=== PATIENT | male | born 1935 | race Caucasian/White ===

== ENCOUNTER → 2017-05-19 | Outpatient (CLI) | payer MEDICARE, BC ==
--- NOTE | 2017-05-21 13:28 | P.ARTDOP ---
Arterial Doppler LOWER EXTREMITY ARTERIAL DOPPLER: DATE OF SERVICE: 05/19/2017 Reason for study: Suspected PVD. Doppler waveforms: Multiphasic bilaterally throughout. Pulse volume recording: Normal configuration. Pressure gradients: None. Ankle-brachial indices: Greater than 1 bilaterally. Toe pressures: [] on the right, [] on the left Impression: Normal study.
== END | disposition home or self-care (01) ==
LOC: RADUSWWP 10:21
PROVIDERS: ATTEND Family Medicine
DX: I73.9 Peripheral vascular disease, unspecified (principal)
CPT/HCPCS: 93923

== ENCOUNTER 2017-09-07 11:54 | Inpatient (IN) | payer MEDICARE, BC ==
[2017-09-07] MEDS ORDERED: IPRATROPIUM-ALBUTEROL 3 ML NEB INHALATION STA (12:28)
[2017-09-07 12:48] LABS: Basophils % (A) 1 %; CH 27.4; CHCM 31.3; Eosinophils # (A) 0.2 k/uL (0-0.7); Eosinophils % (A) 4 %; HCT 45.4 % (39.0-53.0); HGB 14.3 gm/dL (13.0-17.5); Hypochromasia Slight; Luc # (Auto) 0.17; Luc % (Auto) 3; Lymphocytes # (A) 1.4 k/uL (1.0-4.8); Lymphocytes % (A) 22 %; MCH 27.8 pg (25.0-35.0); MCHC 31.5 g/dL (31.0-37.0); MCV 88.1 fL (80.0-100.0); Mean Platelet Volume 9.5; Monocytes # (A) 0.6 k/uL (0-1.0); Monocytes % (A) 9 %; Neutrophils % (A) 62 %; RBC 5.15 m/uL (4.30-5.90); RDW 14.4 % (11.5-15.5); WBC 6.4 k/uL (3.8-10.6); WBC (Perox) 6.07
[2017-09-07 12:58] LABS: INR 1.1 (<1.2); Partial Thromboplastin Time 22.8 sec (22.0-30.0); Prothrombin Time 10.9 sec (9.0-12.0)
--- NOTE | 2017-09-07 12:58 | XR ---
EXAMINATION TYPE: XR chest 2V DATE OF EXAM: 09/07/2017 HISTORY: Chest Pain. REFERENCE: Previous study dated 09/26/2014. FINDINGS: Lung volumes are prominent. There is scarring in the left apex. Lungs otherwise clear. Pleu ral spaces are clear. Heart size is upper limits of normal. There is a moderate dextroscoliosis. Ther e is unfolding and ectasia of the thoracic aorta. IMPRESSION: 1. COPD. 2. MILD CARDIOMEGALY. 3. LEFT UPPER LOBE SCARRING.
[2017-09-07 13:00] LABS: Calcium 9.9 mg/dL (8.4-10.2); Magnesium 2.1 mg/dL (1.6-2.3); Potassium 4.7 mmol/L (3.5-5.1); Total Bilirubin 0.9 mg/dL (0.2-1.3); Total Protein 8.4 g/dL (6.3-8.2)
[2017-09-07 13:30] LABS: Troponin I 0.541 ng/mL (0.000-0.034)
[2017-09-07] MEDS ORDERED: NITROGLYCERIN OINT 1 INCH/GM PACKET TOPICAL STA (14:03)
--- NOTE | 2017-09-07 14:11 | ED ---
Chest Pain HPI - General Chief Complaint: Chest Pain Stated Complaint: chest pain Time Seen by Provider: 09/07/17 12:27 Source: patient, family, RN notes reviewed Mode of arrival: wheelchair Limitations: no limitations - History of Present Illness Initial Comments: This is a 82-year-old male with history of heart disease and stents who her last couple days had intermittent episodes of chest pain. Achy pressure-like in nature currently is pain-free and was as bad as 5/10 in severity. No fevers chills nausea vomiting sweats or other symptoms. MD Complaint: chest pain - Related Data Home Medications Medication Instructions Recorded Confirmed Losartan Potassium 100 mg PO DAILY 06/07/15 09/07/17 Metoprolol Succinate [Toprol XL] 50 mg PO HS 06/07/15 09/07/17 amLODIPine BESYLATE [Norvasc] 5 mg PO HS 06/19/15 09/07/17 Aspirin [Adult Low Dose Aspirin EC] 81 mg PO DAILY 09/07/17 09/07/17 Previous Rx's Medication Instructions Recorded Atorvastatin [Lipitor] 80 mg PO HS #60 tab 06/22/15 Clopidogrel [Plavix] 75 mg PO DAILY #90 tab 06/22/15 Allergies Allergy/AdvReac Type Severity Reaction Status Date / Time Penicillins Allergy Rash/Hives Verified 09/07/17 12:40 Review of Systems ROS Statement: Those systems with pertinent positive or pertinent negative responses have been documented in the HPI. ROS Other: All systems not noted in ROS Statement are negative. EKG Findings - EKG Results: EKG: interpreted by ERMD, sinus rhythm (Sinus rhythm of 71st 3 AV block IA to 10 , QRS 124 QT since QTC of 432/466 evidence a left exodeviation old inferior and anterior changes.) Past Medical History Past Medical History: Coronary Artery Disease (CAD), CVA/TIA, Hyperlipidemia, Hypertension Additional Past Medical History / Comment(s): irreg. heart rate History of Any Multi-Drug Resistant Organisms: None Reported Past Surgical History: Heart Catheterization, Hernia Repair Additional Past Surgical History / Comment(s): STATES HERNIA REPAIR X4, HIATAL HERNIA REPAIR, BENIGN GROWTH REMOVED FROM THROAT Past Anesthesia/Blood Transfusion Reactions: No Reported Reaction Past Psychological History: No Psychological Hx Reported Smoking Status: Former smoker Past Alcohol Use History: Rare Past Drug Use History: None Reported - Past Family History Mother Family Medical History: No Reported History General Exam - General Exam Comments Initial Comments: This is a well-developed well-nourished awake alert oriented times 3 male Limitations: no limitations General appearance: alert, in no apparent distress Head exam: Present: atraumatic, normocephalic, normal inspection Eye exam: Present: normal appearance, PERRL, EOMI. Absent: scleral icterus, conjunctival injection, periorbital swelling ENT exam: Present: normal exam, mucous membranes moist Neck exam: Present: normal inspection. Absent: tenderness, meningismus, lymphadenopathy Respiratory exam: Present: wheezes, decreased breath sounds. Absent: respiratory distress, rales, rhonchi, stridor Cardiovascular Exam: Present: regular rate, normal rhythm, normal heart sounds. Absent: systolic murmur, diastolic murmur, rubs, gallop, clicks GI/Abdominal exam: Present: soft, normal bowel sounds. Absent: distended, tenderness, guarding, rebound, rigid Extremities exam: Present: normal inspection, full ROM, normal capillary refill. Absent: tenderness, pedal edema, joint swelling, calf tenderness Back exam: Present: normal inspection Neurological exam: Present: alert, oriented X3, CN II-XII intact Psychiatric exam: Present: normal affect, normal mood Skin exam: Present: warm, dry, intact, normal color. Absent: rash Course Vital Signs 09/07/17 09/07/17 09/07/17 11:59 12:58 13:02 Temperature 98.9 F Pulse Rate 68 70 67 Respiratory 18 18 Rate Blood Pressure 155/80 147/83 O2 Sat by Pulse 98 98 Oximetry 09/07/17 09/07/17 09/07/17 13:08 13:33 14:14 Temperature Pulse Rate 68 70 72 Respiratory 18 20 Rate Blood Pressure 121/76 137/70 O2 Sat by Pulse 96 98 Oximetry 09/07/17 15:23 Temperature Pulse Rate 82 Respiratory 20 Rate Blood Pressure 111/64 O2 Sat by Pulse 97 Oximetry - Reevaluation(s) Reevaluation #1: 09/07/17 15:15 Reevaluation patient reveals no further chest pain. He then later however complains some slight burning radiating to his epigastric region upward. Repeat EKG showed a sinus rhythm of 75. Interval 198 QRS duration 136 daily since QTC of 426/475 left exodeviation nonspecific interventricular conduction block essentially no change from the EKG done earlier. Chest Pain MDM - MDM I did discuss findings with patient family patient will be admitted he does have evidence of a similar angina and non-ST elevation OK. No EKG changes were noted x-rays are unremarkable for acute processes. Critical Care Time Critical Care Time: Yes Critical Care Time: 31 minutes of critical care time which includes initial presentation with history physical labs x-rays reevaluation patient response to therapy discussed with patient family members discussion with the admitting physician orders and documentation of the above. Disposition Clinical Impression: Non-ST elevation myocardial infarction (NSTEMI), Chest pain, Renal insufficiency Disposition: ADMITTED IP TO THIS HOSP Condition: Stable Referrals: Shade Pitts MD [Primary Care Provider] - 1-2 days
[2017-09-07] MEDS ORDERED: MORPHINE SULFATE 10 MG/ML SYRINGE IVP ONE (14:26)
[2017-09-07] MEDS ORDERED: HEPARIN SODIUM,PORCINE 5,000 UNIT/ML 1 ML VIAL IV ONE (15:24)
[2017-09-07] MEDS ORDERED: SODIUM CHLORIDE 0.9% 1,000 ML IV SCH (15:30)
[2017-09-07] MEDS: HEPARIN SODIUM,PORCINE/D5W PMX 25,000 UNIT in DEXTROSE/WATER 1 500ML.BAG IV SCH (15:41)
--- NOTE | 2017-09-07 15:49 | ED ---
Medical Decision Making - Lab Data Result diagrams: 09/07/17 12:18 09/07/17 12:18 Lab Results 09/07/17 09/07/17 09/07/17 Range/Units 12:18 12:18 12:18 WBC 6.4 (3.8-10.6) k/uL RBC 5.15 (4.30-5.90) m/uL Hgb 14.3 (13.0-17.5) gm/dL Hct 45.4 (39.0-53.0) % MCV 88.1 (80.0-100.0) fL MCH 27.8 (25.0-35.0) pg MCHC 31.5 (31.0-37.0) g/dL RDW 14.4 (11.5-15.5) % Plt Count 165 (150-450) k/uL Neutrophils % 62 % Lymphocytes % 22 % Monocytes % 9 % Eosinophils % 4 % Basophils % 1 % Neutrophils # 4.0 (1.3-7.7) k/uL Lymphocytes # 1.4 (1.0-4.8) k/uL Monocytes # 0.6 (0-1.0) k/uL Eosinophils # 0.2 (0-0.7) k/uL Basophils # 0.0 (0-0.2) k/uL Hypochromasia Slight PT (9.0-12.0) sec INR (<1.2) APTT (22.0-30.0) sec D-Dimer (<0.60) mg/L FEU Sodium 143 (137-145) mmol/L Potassium 4.7 (3.5-5.1) mmol/L Chloride 106 (98-107) mmol/L Carbon Dioxide 24 (22-30) mmol/L Anion Gap 13 mmol/L BUN 34 H (9-20) mg/dL Creatinine 1.65 H (0.66-1.25) mg/dL Est GFR (MDRD) Af Amer 49 (>60 ml/min/1.73 sqM) Est GFR (MDRD) Non-Af 40 (>60 ml/min/1.73 sqM) Glucose 106 H (74-99) mg/dL Calcium 9.9 (8.4-10.2) mg/dL Magnesium 2.1 (1.6-2.3) mg/dL Total Bilirubin 0.9 (0.2-1.3) mg/dL AST 30 (17-59) U/L ALT 35 (21-72) U/L Alkaline Phosphatase 68 (38-126) U/L Total Creatine Kinase 117 (55-170) U/L CK-MB (CK-2) 5.0 H* (0.0-2.4) ng/mL CK-MB (CK-2) Rel Index 4.3 Troponin I 0.541 H* (0.000-0.034) ng/mL NT-Pro-B Natriuret Pep pg/mL Total Protein 8.4 H (6.3-8.2) g/dL Albumin 4.4 (3.5-5.0) g/dL Amylase 169 H (30-110) U/L Lipase 457 H (23-300) U/L 09/07/17 09/07/17 Range/Units 12:18 12:18 WBC (3.8-10.6) k/uL RBC (4.30-5.90) m/uL Hgb (13.0-17.5) gm/dL Hct (39.0-53.0) % MCV (80.0-100.0) fL MCH (25.0-35.0) pg MCHC (31.0-37.0) g/dL RDW (11.5-15.5) % Plt Count (150-450) k/uL Neutrophils % % Lymphocytes % % Monocytes % % Eosinophils % % Basophils % % Neutrophils # (1.3-7.7) k/uL Lymphocytes # (1.0-4.8) k/uL Monocytes # (0-1.0) k/uL Eosinophils # (0-0.7) k/uL Basophils # (0-0.2) k/uL Hypochromasia PT 10.9 (9.0-12.0) sec INR 1.1 (<1.2) APTT 22.8 (22.0-30.0) sec D-Dimer 1.76 H (<0.60) mg/L FEU Sodium (137-145) mmol/L Potassium (3.5-5.1) mmol/L Chloride (98-107) mmol/L Carbon Dioxide (22-30) mmol/L Anion Gap mmol/L BUN (9-20) mg/dL Creatinine (0.66-1.25) mg/dL Est GFR (MDRD) Af Amer (>60 ml/min/1.73 sqM) Est GFR (MDRD) Non-Af (>60 ml/min/1.73 sqM) Glucose (74-99) mg/dL Calcium (8.4-10.2) mg/dL Magnesium (1.6-2.3) mg/dL Total Bilirubin (0.2-1.3) mg/dL AST (17-59) U/L ALT (21-72) U/L Alkaline Phosphatase (38-126) U/L Total Creatine Kinase (55-170) U/L CK-MB (CK-2) (0.0-2.4) ng/mL CK-MB (CK-2) Rel Index Troponin I (0.000-0.034) ng/mL NT-Pro-B Natriuret Pep 2280 pg/mL Total Protein (6.3-8.2) g/dL Albumin (3.5-5.0) g/dL Amylase (30-110) U/L Lipase (23-300) U/L Disposition Clinical Impression: Non-ST elevation myocardial infarction (NSTEMI), Chest pain, Renal insufficiency, Pancreatitis Disposition: ADMITTED IP TO THIS [facility] Condition: Stable
[2017-09-07] MEDS: NITROGLYCERIN OINT 1 INCH/GM PACKET TOPICAL SCH ×2 (17:41→23:11)
[2017-09-07 19:14] LABS: Creatine Kinase MB 4.8 ng/mL (0.0-2.4)
[2017-09-07 19:15] LABS: Troponin I 0.666 ng/mL (0.000-0.034)
[2017-09-07] MEDS ORDERED: ATORVASTATIN 80 MG TAB PO SCH (21:00)
[2017-09-07] MEDS: amLODIPine 5 MG TAB PO SCH (21:33)
[2017-09-07] MEDS: METOPROLOL SUCCINATE (ER) 50 MG TAB.ER.24H PO SCH (21:54)
[2017-09-08 01:45] LABS: Troponin I 2.13 ng/mL (0.000-0.034)
--- NOTE | 2017-09-08 05:02 | HP ---
HISTORY AND PHYSICAL DATE OF ADMISSION: 09/07/17 PRESENTING COMPLAINT: Chest pain. HISTORY OF PRESENTING COMPLAINT: This is a very pleasant 82-year-old patient of Dr. Pitts whose chronic stable medical conditions include hypertension, hyperlipidemia. The patient has known coronary artery disease with stent in 2014. For 10 days, patient having episodes of pain going across the chest, could even be present at rest. The patient again had an episode last night with pressure across the chest and had to sit up, could barely sleep the whole night. Developed swelling in his extremities. The pain went down to the arms. These episodes often times lasted for about half an hour. The patient does not take nitroglycerin. No sweating. No dizziness. No palpitation. The patient admitted to the ER, started on IV heparin. is at the bedside. REVIEW OF SYSTEMS: CONSTITUTIONAL: Tired. HEENT: None. RESPIRATORY: None. CARDIOVASCULAR: As above. GASTROINTESTINAL: None GENITOURINARY: None. MUSCULOSKELETAL: None. DERMATOLOGIC, HEMATOLOGIC, LYMPHATIC: none. PSYCHIATRY: None. NEUROLOGICAL: None. PAST HISTORY: Coronary artery with stent in 2014, stroke that resolved, hyperlipidemia, hypertension. Also irregular heart rate. Stroke x4, resolved. PAST SURGICAL HISTORY: Cardiac catheterization, hernia repair x4, benign removed from the throat. SOCIAL HISTORY: The patient did smoke in the past. Alcohol rarely. Used to work in refrigeration and air-conditioning. . FAMILY HISTORY: Reviewed noncontributory to presentation. HOME MEDICATIONS: Norvasc 5 mg q.h.s., Toprol-XL 50 mg q.h.s., losartan 100 mg p.o. daily. Plavix 25 mg p.o. daily. Lipitor 80 mg q.h.s., aspirin 81 mg p.o. daily. ALLERGIES: PENICILLIN. PHYSICAL EXAMINATION: Temperature 98.9, pulse 68, respiration 18, blood pressure 155/80, pulse ox 98% on room air. GENERAL APPEARANCE: Average build lying in bed, tired appearing. EYES: Pupils are normal. HEENT: Oral cavity normal. NECK: JVD not raised. Mass not palpable. RESPIRATORY: Effort. Lungs fair entry. CARDIOVASCULAR: First and second sounds normal. No edema. ABDOMEN: Soft, nontender. Liver and spleen not palpable. LYMPHATIC: No lymph nodes palpable in neck or axillae. PSYCHIATRY: Alert and oriented x3. Mood and affect normal. NEUROLOGICAL: Pupils equal. Cranial nerves grossly intact. Power and sensation grossly intact. INVESTIGATIONS: White count 6.4, hemoglobin 14.3, potassium 4.7, BUN 34, creatinine 1.65. Troponin 0.541, 0.666. Amylase 169. Lipase 457. ProBNP 2280. EKG shows sinus rhythm, some element of intraventricular block, some nonspecific ST-segment changes. ASSESSMENT: 1. Acute non ST elevation myocardial infarction in a patient who has known underlying coronary artery disease with cardiac symptoms for the last 10 days. 2. Hyperlipidemia. 3. Essential hypertension. 4. IV heparin monitoring. 5. Chronic kidney disease stage 3, likely hypertensive nephrosclerosis. PLAN: Patient is on aspirin, Lipitor, Plavix, Norvasc, Toprol-XL. Cardiology is consulted. The patient's symptoms have been present for the last 10 days. Because the patient has got renal dysfunction the decision between cardiac catheterization versus medical management will have to be determined. The patient has been having active chest pain. Care was discussed the patient and at the bedside. The patient has a mild elevation of amylase and lipase. It is possible the patient could have an attack of pancreatitis, but given the renal function, these pancreatic enzymes do take a while to clear and this could be on its way down. We will check repeat enzymes in the morning. MMODL / IJN: [id number] /
[2017-09-08] MEDS: NITROGLYCERIN OINT 1 INCH/GM PACKET TOPICAL SCH ×4 (06:31→23:11)
[2017-09-08] MEDS: NITROGLYCERIN SL TABS 0.4 MG TAB SUBLINGUAL PRN ×2 (06:37→10:20)
[2017-09-08 07:15] LABS: Calcium 9.1 mg/dL (8.4-10.2); Potassium 4.9 mmol/L (3.5-5.1)
[2017-09-08] MEDS ORDERED: ALPRAZolam 0.5 MG TAB PO PRN (08:01)
[2017-09-08] MEDS ORDERED: SODIUM CHLORIDE 0.9% 1,000 ML in EMPTY BAG 1 BAG IV ONE (08:01)
[2017-09-08] MEDS ORDERED: ALPRAZolam 0.25 MG TAB PO PRN (08:01)
[2017-09-08] MEDS ORDERED: NITROGLYCERIN SL TABS 0.4 MG TAB SUBLINGUAL PRN ×2 (08:01→11:47)
[2017-09-08] MEDS ORDERED: ATORVASTATIN 80 MG TAB PO STA (08:05)
[2017-09-08] MEDS ORDERED: ASPIRIN 325 MG TAB PO STA (08:05)
--- NOTE | 2017-09-08 08:05 | P.CRDCN ---
History of Present Illness Consult date: 09/08/17 Requesting physician: Akhil Decker Consult reason: chest pain Chief complaint: Chest pain History of present illness: This is a pleasant 82-year-old gentleman who follows regularly with Dr. Paras Nguyễn in the office. He has a known history of hypertension, hyperlipidemia, coronary artery disease with prior stenting of the mid and distal RCA in 2015, moderate aortic stenosis, GERD, and Zenker's diverticula. He presents to the hospital with symptoms of midsternal chest tightness with radiation down both of his arms. Patient states that he's been experiencing this discomfort off-and-on for the past 2 weeks. Initially the symptoms would occur when he was sleeping, he states now that he also notices symptoms just with getting up to go to the bathroom. He denies any associated diaphoresis or nausea, no shortness of breath. Initial EKG on presentation here shows normal sinus rhythm with anterior ST-T wave changes. Subsequent EKG shows normal sinus rhythm with anterior ST-T wave changes and lateral ST depression. Chest x -ray shows COPD and mild cardiomegaly. White blood cell count normal, hemoglobin 14.3, platelet count 165. D-dimer 1.76, potassium 4.9, BUN 32, creatinine 1.6. Troponins came back to be abnormal, 0.5, 0.6, 2.1. BNP level 2280. Amylase 169 on admission, 150 this morning, lipase 457 on admission, 497 this morning. Blood pressure this morning 104/60 with a heart rate in the 60s, temperature 97.1. Patient did state that this morning when he was getting up to use the urinal he had an episode of severe chest tightness with radiation down both of his arms. He was given sublingual nitroglycerin as well as Nitropaste and currently is pain-free. Past Medical History Past Medical History: Coronary Artery Disease (CAD), Cancer, CVA/TIA, Hyperlipidemia, Hypertension Additional Past Medical History / Comment(s): irreg. 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 08-27-17 Past Anesthesia/Blood Transfusion Reactions: No Reported Reaction Past Psychological History: No Psychological Hx Reported Smoking Status: Former smoker Past Alcohol Use History: Rare Past Drug Use History: None Reported - Past Family History Mother Family Medical History: No Reported History Medications and Allergies Home Medications Medication Instructions Recorded Confirmed Type Losartan Potassium 100 mg PO DAILY 06/07/15 09/07/17 History Metoprolol Succinate [Toprol XL] 50 mg PO HS 06/07/15 09/07/17 History amLODIPine BESYLATE [Norvasc] 5 mg PO HS 06/19/15 09/07/17 History Atorvastatin [Lipitor] 80 mg PO HS #60 tab 06/22/15 09/07/17 Rx Clopidogrel [Plavix] 75 mg PO DAILY #90 tab 06/22/15 09/07/17 Rx Aspirin [Adult Low Dose Aspirin EC] 81 mg PO DAILY 09/07/17 09/07/17 History Allergies Allergy/AdvReac Type Severity Reaction Status Date / Time Penicillins Allergy Rash/Hives Verified 09/07/17 12:40 Physical Exam Vitals: Vital Signs Temp Pulse Pulse Resp BP BP Pulse Ox 09/08/17 04:00 97.1 F L 68 16 103/61 95 09/08/17 00:00 78 17 100/60 97 09/07/17 20:00 97.6 F 84 16 104/61 97 09/07/17 15:50 97.1 F L 85 16 102/58 94 L 09/07/17 15:46 97.9 F 82 18 111/66 98 09/07/17 15:23 82 20 111/64 97 09/07/17 14:14 72 20 137/70 98 09/07/17 13:33 70 18 121/76 96 09/07/17 13:08 68 09/07/17 13:02 67 09/07/17 12:58 70 18 147/83 98 09/07/17 11:59 98.9 F 68 18 155/80 98 Intake and Output 09/07/17 09/08/17 09/08/17 22:59 06:59 14:59 Intake Total 315.543 319.821 Output Total 1000 Balance 315.543 -680.179 Intake: Intake, IV Titration 115.543 319.821 Amount Heparin Sodium,Porcine/ 115.543 179.821 D5w Pmx 25,000 unit In Dextrose/Water 1 500ml. bag @ 12 UNITS/KG/HR 17. 96 mls/hr IV .Q24H YULISA Rx #:[id number] Sodium Chloride 0.9% 1, 140 000 ml @ 20 mls/hr IV . Q24H YULISA Rx#:[id number] Oral 200 Output: Urine 1000 Other: # Voids 1 2 Weight 76 kg 75.6 kg PHYSICAL EXAMINATION: HEENT: Head is atraumatic, normocephalic. Pupils equal, round. Neck is supple. There is no elevated jugular venous pressure. HEART EXAMINATION: Heart S1 S2 1 systolic ejection murmur is heard. CHEST EXAMINATION: Lungs are clear to auscultation and precussion. No chest wall tenderness is noted on palpation or with deep breathing. ABDOMEN: Soft, nontender. Bowel sounds are heard. No organomegaly noted. EXTREMITIES: 2+ peripheral pulses with no evidence of peripheral edema and no calf tenderness noted. NEUROLOGIC patient is awake, alert and oriented -3. . Results 09/07/17 12:18 09/08/17 06:13 Cardiac Enzymes 09/07/17 09/07/17 09/07/17 Range/Units 12:18 12:18 18:30 AST 30 (17-59) U/L CK-MB (CK-2) 5.0 H* 4.8 H* (0.0-2.4) ng/mL Troponin I 0.541 H* 0.666 H* (0.000-0.034) ng/mL 09/08/17 Range/Units 00:25 AST (17-59) U/L CK-MB (CK-2) 12.0 H* (0.0-2.4) ng/mL Troponin I 2.130 H* (0.000-0.034) ng/mL Coagulation 09/07/17 09/07/17 09/08/17 Range/Units 12:18 21:33 06:13 PT 10.9 (9.0-12.0) sec APTT 22.8 45.1 H 53.2 H (22.0-30.0) sec Lipids 09/08/17 Range/Units 06:13 Triglycerides 53 (<150) mg/dL Cholesterol 118 (<200) mg/dL HDL Cholesterol 59 (40-60) mg/dL CBC 09/07/17 Range/Units 12:18 WBC 6.4 (3.8-10.6) k/uL RBC 5.15 (4.30-5.90) m/uL Hgb 14.3 (13.0-17.5) gm/dL Hct 45.4 (39.0-53.0) % Plt Count 165 (150-450) k/uL Comprehensive Metabolic Panel 09/07/17 09/08/17 Range/Units 12:18 06:13 Sodium 143 141 (137-145) mmol/L Potassium 4.7 4.9 (3.5-5.1) mmol/L Chloride 106 108 H (98-107) mmol/L Carbon Dioxide 24 26 (22-30) mmol/L BUN 34 H 32 H (9-20) mg/dL Creatinine 1.65 H 1.60 H (0.66-1.25) mg/dL Glucose 106 H 97 (74-99) mg/dL Calcium 9.9 9.1 (8.4-10.2) mg/dL AST 30 (17-59) U/L ALT 35 (21-72) U/L Alkaline Phosphatase 68 (38-126) U/L Total Protein 8.4 H (6.3-8.2) g/dL Albumin 4.4 (3.5-5.0) g/dL Current Medications Generic Name Dose Route Start Last Admin Trade Name Freq PRN Reason Stop Dose Admin Amlodipine Besylate 5 mg 09/07/17 21:00 09/07/17 21:33 Norvasc PO 5 mg HS YULISA Administration Aspirin 81 mg 09/08/17 09:00 Aspirin PO DAILY [facility] Atorvastatin Calcium 80 mg 09/07/17 21:00 09/07/17 21:33 Lipitor PO 80 mg HS YULISA Administration Clopidogrel Bisulfate 75 mg 09/08/17 09:00 Plavix PO DAILY [facility] Heparin Sodium/Dextrose 25,000 500 mls @ 17.96 mls/hr 09/07/17 15:30 06:42 unit/ IV Solution IV 14 units/kg/hr .Q24H YULISA 20.95 mls/hr Protocol Titration 12 UNITS/KG/HR Sodium Chloride 1,000 mls @ 20 mls/hr 09/07/17 15:30 09/07/17 15:38 Saline 0.9% IV 20 mls/hr .Q24H YULISA Administration Losartan Potassium 100 mg 09/08/17 09:00 Cozaar PO DAILY [facility] Metoprolol Succinate 50 mg 09/07/17 21:00 09/07/17 21:54 Toprol Xl PO 50 mg HS YULISA Administration Nitroglycerin 1 inch 09/07/17 18:00 09/08/17 06:31 Nitro-Bid Oint TOPICAL 1 inch Q6HR YULISA Administration Nitroglycerin 0.4 mg 09/07/17 15:24 09/08/17 06:37 Nitrostat SUBLINGUAL 0.4 mg Q5M PRN Administration Chest Pain Intake and Output 09/07/17 09/08/17 09/08/17 22:59 06:59 14:59 Intake Total 315.543 319.821 Output Total 1000 Balance 315.543 -680.179 Intake: Intake, IV Titration 115.543 319.821 Amount Heparin Sodium,Porcine/ 115.543 179.821 D5w Pmx 25,000 unit In Dextrose/Water 1 500ml. bag @ 12 UNITS/KG/HR 17. 96 mls/hr IV .Q24H [facility] Rx #:[id number] Sodium Chloride 0.9% 1, 140 000 ml @ 20 mls/hr IV . Q24H YULISA Rx#:[id number] Oral 200 Output: Urine 1000 Other: # Voids 1 2 Weight 76 kg 75.6 kg 09/07/17 12:18 09/08/17 06:13 EKG Interpretations (text) EKG shows a normal sinus rhythm with anterior ST-T wave changes in lateral ST depression. Assessment and Plan Plan: Assessment and plan #1 chest tightness with radiation to bilateral arms, EKG shows normal sinus rhythm with anterior ST-T wave changes in lateral ST depression. Abnormal troponins, 0.5, 0.6, 2.1. Suggesting non-Q-wave myocardial infarction. D- dimer 1.76 #2 history of coronary artery disease with prior RCA stenting in 2015 #3 hypertension #4 moderate aortic stenosis #5 hyperlipidemia #6 GERD #7 Zenker's diverticula #8 acute on chronic renal insufficiency. Creatinine 1.6 #9 elevated amylase and lipase, amylase 150, lipase 497. Plan We will obtain a stat echocardiogram with Doppler study. Increase IV fluids to 100 mL per hour. Continue aspirin, Lipitor, Plavix, IV heparin, Cozaar, metoprolol tartrate, and Nitropaste. Patient has been advised he may need to undergo cardiac catheterization for more definitive diagnosis, the risks and the benefits have been explained to the patient in detail. Further recommendations will be based on these findings and the patient's clinical course. DNP note has been reviewed, I agree with a documented findings and plan of care. Patient was seen and examined.
[2017-09-08] MEDS: CLOPIDOGREL 75 MG TAB PO SCH (08:09)
[2017-09-08] MEDS ORDERED: ASPIRIN 325 MG TAB PO SCH (09:00)
[2017-09-08] MEDS ORDERED: ASPIRIN 81 MG PO SCH (09:00)
[2017-09-08 10:23] LABS: Glucose,Whole Blood 107 mg/dL (75-99)
[2017-09-08] MEDS ORDERED: MIDAZOLAM 2 MG/2 ML VIAL ONE (10:37)
[2017-09-08] MEDS ORDERED: LIDOCAINE 2% INJ 20 MG/ML (20 ML MDV) ONE (10:38)
[2017-09-08] MEDS ORDERED: diphenhydrAMINE 50 MG/ML 1 ML VIAL ONE (10:38)
[2017-09-08] MEDS ORDERED: diphenhydrAMINE 50 MG/ML 1 ML VIAL IVP ONE (10:47)
[2017-09-08] MEDS ORDERED: MIDAZOLAM 2 MG/2 ML VIAL IV ONE (10:48)
[2017-09-08] MEDS ORDERED: SODIUM CHLORIDE 0.9% 1,000 ML IV ONE (10:48)
[2017-09-08] MEDS ORDERED: LIDOCAINE 2% INJ 20 MG/ML SQ ONE (10:51)
[2017-09-08] MEDS ORDERED: BIVALIRUDIN 250 MG in SODIUM CHLORIDE 0.9% 50 ML IV ONE (11:07)
[2017-09-08] MEDS ORDERED: BIVALIRUDIN BOLUS 250 MG/50 ML IV ONE (11:07)
[2017-09-08] MEDS ORDERED: niCARdipine 25 MG/10 ML VIAL ONE (11:10)
[2017-09-08] MEDS ORDERED: HYDROmorphone 2 MG/ML 1 ML SYRINGE ONE (11:11)
[2017-09-08] MEDS ORDERED: HYDROmorphone 2 MG/ML 1 ML SYRINGE IV ONE (11:12)
[2017-09-08] MEDS ORDERED: niCARdipine Syringe (1,000 mcg/10 mL) INTRACORON ONE (11:19)
[2017-09-08] MEDS ORDERED: NITROGLYCERIN 1000MCG/10ML SYRINGE INTRACORON ONE (11:20)
[2017-09-08] MEDS ORDERED: CLOPIDOGREL 75 MG TAB ONE (11:28)
[2017-09-08] MEDS ORDERED: CLOPIDOGREL 75 MG TAB PO ONE (11:30)
[2017-09-08] MEDS ORDERED: IODIXANOL 320 MG/ML 100 ML INTRAARTER ONE (11:31)
--- NOTE | 2017-09-08 11:44 | ECHOF ---
Referral Reason:assess lvf MEASUREMENTS -------- HEIGHT: 182.9 cm WEIGHT: 75.3 kg BP: IVSd: 1.3 cm (0.6 - 1.1) LVIDd: 5.3 cm (3.9 - 5.3) LVPWd: 1.2 cm (0.6 - 1.1) IVSs: 1.5 cm LVIDs: 4.8 cm LVPWs: 1.1 cm LAESV Index (A-L): 42.10 ml/m Ao Diam: 3.7 cm (2.0 - 3.7) AV Cusp: 0.7 cm (1.5 - 2.6) LA Diam: 3.3 cm (2.7 - 3.8) MV EXCURSION: 15.792 mm (> 18.000) MV EF SLOPE: 22 mm/s (70 - 150) AV maxP.45 mmHg AV meanP.27 mmHg RAP: 5.00 mmHg RVSP: 27.88 mmHg FINDINGS -------- Undetermined rhythm. This was a techncally difficult study with suboptimal views, , Definity utilized for enhancement of i mages. The left ventricular size is normal. There is mild concentric left ventricular hypertrophy. Overa ll left ventricular systolic function is moderate-severely impaired with, an EF between 30 - 35 %. Anterseptal Hypokinesis Lateral hypokinesis Septal Hypokinesis Lookout Hypokinesis. The right ventricle is normal in size. LA is severely dilated >40 ml/m2 The right atrial size is normal. 1.5MG OF DEFINITY UTLIZED: 2 OR MORE WALL SEGMENTS NOT VISUALIZED. There is moderate to severe aortic valve sclerosis. There is mild aortic regurgitation. Peak/mean gradient across the Aortic Valve is 18.45mmHg / 10.27mmHg. Aortic Valve is stenotic with decreased opening , Gradient underestimated due to EF. Mild mitral regurgitation is present. Mild tricuspid regurgitation present. There is no evidence of pulmonary hypertension. The right v entricular systolic pressure, as measured by Doppler, is 27.88mmHg. There is no pulmonic regurgitation present. Aortic Root is dilated and measures 4.1 cm. There is no pericardial effusion. CONCLUSIONS -------- 1. This was a techncally difficult study with suboptimal views, , Definity utilized for enhancement o f images. 2. The left ventricular size is normal. 3. There is mild concentric left ventricular hypertrophy. 4. Overall left ventricular systolic function is moderate-severely impaired with, an EF between 30 - 35 %. 5. Anterseptal Hypokinesis 6. Lateral hypokinesis 7. Septal Hypokinesis 8. Lookout Hypokinesis. 9. LA is severely dilated >40 ml/m2 10. 1.5MG OF DEFINITY UTLIZED: 2 OR MORE WALL SEGMENTS NOT VISUALIZED. 11. There is moderate to severe aortic valve sclerosis. 12. There is mild aortic regurgitation. 13. Peak/mean gradient across the Aortic Valve is 18.45mmHg / 10.27mmHg. 14. Aortic Valve is stenotic with decreased opening , Gradient underestimated due to EF. 15. Mild mitral regurgitation is present. 16. Mild tricuspid regurgitation present. 17. There is no evidence of pulmonary hypertension. 18. The right ventricular systolic pressure, as measured by Doppler, is 27.88mmHg. 19. There is no pulmonic regurgitation present. 20. Aortic Root is dilated and measures 4.1 cm. 21. There is no pericardial effusion. DISTRIBUTION OPERATIONS MANAGER: Edith Dumont RDCS
[2017-09-08] MEDS ORDERED: ZOLPIDEM 5 MG TAB PO PRN (11:47)
[2017-09-08] MEDS ORDERED: ATROPINE SULFATE 0.1 MG/ML 10ML SYRINGE IV PRN (11:47)
[2017-09-08] MEDS ORDERED: RX INFO: IV CONTRAST WAS GIVEN 1 EACH MISC MISCELLANE PRN (11:47)
[2017-09-08] MEDS ORDERED: MAG HYDROX/AL HYDROX/SIMETH 30 ML CUP PO PRN (11:47)
--- NOTE | 2017-09-08 13:18 | CC ---
CARDIAC CATHETERIZATION REPORT DATE OF SERVICE: 09/08/2017. PROCEDURE PERFORMED: 1. Left heart catheterization and coronary angiography. 2. PTCA and stenting of proximal LAD with a drug-eluting stent. PERFORMED BY: Dr. Jose Ramon Nguyễn. SEDATION: Moderate conscious sedation time was 39 minutes. CLINICAL INFORMATION: Mr. Frank Peoples is an 82-year-old gentleman with a known history of CAD, previous PCI of a very complex RCA calcified lesion performed in May 2015. He also has a mild to moderate aortic stenosis. At that time, his LAD was free of significant disease. He presented to the hospital with chest pain, had ST-segment abnormality in precordial leads with the elevated troponin and a hypokinesia in the anteroapical wall. Clinical picture was that of a non-ST elevation IA. He was advised prompt cardiac catheterization after due discussion of risks, benefits, and options. PROCEDURE NOTE: Under local anesthesia and strict aseptic precautions, a 6-Icelandic introducer was placed in the right femoral artery. I used a standard right Adalid catheter for selective coronary angiography of the RCA. For the left coronary I used initially a JL4, but then I switched over to a XB 4.0 catheter and used this to perform selective coronary angiography and also perform intervention. I noted that the RCA was widely patent at the site of stenting with 2 other moderate lesions proximal to it. The LAD had a 99% lesion involving the proximal portion in a calcified segment at the at the origin of the diagonal branch. I recommended intervention that was performed at the same time. PCI procedure details: I used a XB LAD 4.0 catheter to cannulate the left coronary artery. A run-through wire was used to cross the lesion. Predilatation was performed using 8 mm long 3.5 caliber NC trek balloon. Multiple inflations were given. I then deployed a 12 mm long 3.5 caliber Xience stent at 13 atmospheres. Patient had chest pain and significant precordial ST elevation. Excellent angiographic result was achieved with total relief of pain and improvement in EKG. Patient received Angiomax bolus and infusion as per protocol. He also received 225 mg of Plavix orally and he was already on Plavix to begin with. Results were discussed with the patient and family. Moderate conscious sedation time was 39 minutes. The sheath was sutured and he was sent to the room in stable condition with the understanding the sheath will be pulled in a couple of hours. CARDIAC CATHETERIZATION FINDINGS: The left ventricle end-diastolic pressure was 16-18 mmHg with gradient of about 5-6 mm across the aortic valve. Very insignificant gradient was noted and this was on a pullback hemodynamics. CORONARY ANGIOGRAPHY FINDINGS: Right coronary artery: This is technically a very dominant vessel, which was stented in May of 2015. The vessel in the proximal portion has an area of about 30% to 40% narrowing. In the midportion there is another 40% to 50% narrowing and in the stented segment is after the 2nd narrowing and the stented segment is widely patent. Beyond it bifurcates into PDA and PLV, both of which supply a sizable amount of myocardium. Both the lesions are not critical but moderate and the flow in the RCA is very brisk. Left main coronary artery: Short patent disease-free vessel that is free of significant disease. Left anterior descending coronary artery: This vessel in the proximal portion has a 99% stenosis with thrombus and sluggish flow. It gives off diagonal branches which are diffusely diseased. Mid LAD has diffuse disease of 30% to 40% and then the caliber improves. It runs all the way to the apex to supply a sizable amount of myocardium. Proximal LAD is the culprit lesion, 99% stenosis with thrombus. Left posterior circumflex coronary artery: This is a nondominant vessel, has diffuse disease in it. It gives off an obtuse marginal branch which has about a 40% lesion and after the obtuse marginal, there is a 50% stenosis in the circumflex supplies a fair amount of myocardium. The circumflex coronary artery has therefore a 40-50% mid lesion, does not appear to be critical, but there is a moderate area of narrowing noted. The circumflex is nondominant. FINAL IMPRESSION: This patient has a 35-40% proximal RCA and a 40% mid RCA lesion. The stented segment is widely patent. It is a dominant vessel with brisk flow. Proximal LAD has a 99% stenosis with thrombus. Circumflex has a 50-55% stenosis in the midportion after the obtuse marginal, which has also mild disease. Filling pressures are acceptable. RECOMMENDATION: I recommend intervention of the LAD that was performed expeditiously. A drug-eluting stent was deployed with excellent angiographic result. Results were discussed with the patient and family and he was sent to the room in a stable condition with the understanding the sheath will be pulled in a couple of hours. MMODL / IJN: [id number] /
--- NOTE | 2017-09-08 13:25 | LTR ---
DATE OF SERVICE: 09/08/[address] Pitts: Thank you for the opportunity to participate in the care of Mr. Frank Peoples. This gentleman underwent stenting of RCA 2 years ago. That site of stenting is patent. He has moderate disease proximal to it, which does not require any immediate intervention. He has a new 99% stenosis in the proximal LAD that was addressed today with excellent angiographic result. Patient did have a non-ST elevation VA and hopefully most of the LV function will recover. He should be on aspirin and Plavix without interruption for about 1 year without interruption. Thank you for your referral. Please call for questions. With kind regards, Sincerely yours, MMODL / IJN: [id number] /
--- NOTE | 2017-09-08 13:53 | P.PN ---
Progress Note - Text Progress Note Date: 09/08/17 DATE OF SERVICE: 09/08/2017 PRESENTING COMPLAINT: Chest pain HISTORY OF PRESENT ILLNESS: 82-year-old male with known coronary artery disease presented to the emergency department with an episode of chest pressure, patient has been having these episodes for the previous 10 days. Last night episode was pressure across chest had decreased could barely sleep the whole night. Noted swelling to his extremities, admitted for the same, IV heparin initiated. INTERVAL HISTORY: 09/08/2017: Patient seen in follow-up, patient had another episode of chest pain this morning when he was getting up to use the urinal with radiation down both of his arms. Received sublingual nitro as well as Nitropaste. Patient was taken to the cardiac catheterization lab this morning. Patient remains nothing by mouth, in preparation for catheterization. REVIEW OF SYSTEMS: Done for constitutional ,cardiovascular, GI, pulmonary with relevant findings as above. CURRENT MEDICATIONS Xanax, Norvasc 5 mg by mouth at bedtime, aspirin 81 mg by mouth daily, Lipitor 80 mg by mouth at bedtime, Plavix 75 mg by mouth daily, heparin IV titrated protocol, Cozaar 100 mg by mouth daily, Toprol-XL 50 mg by mouth at bedtime, Nitro-Bid ointment 1 inch topicals every 6 hours. PHYSICAL EXAM VITAL SIGNS: Temperature 97.1, pulse 68, respiratory rate 18, blood pressure 117/68, oxygen saturation 94% on 2 L. GENERAL APPEARANCE: Lying in bed, not in distress. EYES: Pupils equal. Conjunctiva normal. NECK: JVD not raised. Mass not palpable. RESPIRATORY: Respiratory effort normal. Lungs diminished to auscultation. CARDIOVASCULAR: First and second sounds normal. No edema. ABDOMEN: Soft. Liver and spleen not palpable. No tenderness. No mass palpable. PSYCHIATRY: Alert and oriented x3. Mood and affect normal. INVESTIGATIONS: BUN 32, creatinine 1.60, amylase 150, lipase 497, troponin 0.666, 2.130. ASSESSMENT: -Acute non-ST elevation myocardial infarction the patient was known underlying coronary artery disease with cardiac symptoms for the last 10 days. -Hyperlipidemia. -Essential hypertension. -IV heparin monitoring. -Chronic kidney disease stage III likely hypertensive nephrosclerosis. PLAN: Patient is status post PTCA and stenting of the proximal LAD with a drug- eluting stent, sheath to be pulled in a couple of hours, continue current medication and treatment plan, plan of care discussed with the patient and at bedside we will follow closely. TUBE ROOM SUPERVISOR statement: Patient was seen and examined by nurse practitioner Denisse Goldberg and all elements of the case discussed with attending Dr. Decker
[2017-09-08 14:12] VITALS: BMI 24.6
[2017-09-08] MEDS: LOSARTAN 50 MG TAB PO SCH (15:49)
[2017-09-08] MEDS: SODIUM CHLORIDE 0.9% 1,000 ML IV SCH ×3 (15:56→21:26)
[2017-09-08] MEDS: HEPARIN SODIUM,PORCINE/D5W PMX 25,000 UNIT in DEXTROSE/WATER 1 500ML.BAG IV SCH (15:56)
[2017-09-08 17:00] LABS: Glucose,Whole Blood 92 mg/dL (75-99)
[2017-09-08] MEDS: METOPROLOL SUCCINATE (ER) 50 MG TAB.ER.24H PO SCH (21:16)
[2017-09-08] MEDS: amLODIPine 5 MG TAB PO SCH (21:16)
--- NOTE | 2017-09-09 05:00 | PN ---
PROGRESS NOTE DATE OF SERVICE: 09/08/2017 ATTENDING NOTE: The patient is seen and examined by me. I discussed with nurse practitioner, Ms. Goldberg. This is a patient who presented with acute non-ST elevation myocardial infarction, underwent a cardiac cath today with stent to the LAD. Post procedure feels much better. Breathing is stable. is at the bedside. PHYSICAL EXAMINATION: On examination, temperature 97.9, pulse 87, respirations 20, blood pressure 148/96. LUNGS: Fair entry. CARDIOVASCULAR: First and second sounds normal. ASSESSMENT: Acute [id number] myocardial infarction followed by stent to the LAD. PLAN: Continue current medication and treatment plan. Repeat renal function in the morning. MMODL / IJN: [id number] /
[2017-09-09] MEDS: SODIUM CHLORIDE 0.9% 1,000 ML IV SCH ×4 (05:49→22:27)
[2017-09-09] MEDS: NITROGLYCERIN OINT 1 INCH/GM PACKET TOPICAL SCH (06:22)
[2017-09-09 06:46] LABS: Basophils % (A) 1 %; CH 27.3; CHCM 31.7; Eosinophils # (A) 0.2 k/uL (0-0.7); Eosinophils % (A) 3 %; HCT 36.9 % (39.0-53.0); HDW 2.39; HGB 12.3 gm/dL (13.0-17.5); Luc # (Auto) 0.11; Luc % (Auto) 2; Lymphocytes % (A) 18 %; MCH 28.7 pg (25.0-35.0); MCHC 33.3 g/dL (31.0-37.0); MCV 86.4 fL (80.0-100.0); Mean Platelet Volume 8.5; Monocytes # (A) 0.7 k/uL (0-1.0); Monocytes % (A) 12 %; Neutrophils # (A) 3.7 k/uL (1.3-7.7); Neutrophils % (A) 64 %; RBC 4.27 m/uL (4.30-5.90); RDW 14.1 % (11.5-15.5); WBC 5.8 k/uL (3.8-10.6); WBC (Perox) 6.36
[2017-09-09 06:59] LABS: Calcium 9.1 mg/dL (8.4-10.2); Potassium 4.5 mmol/L (3.5-5.1)
[2017-09-09] MEDS: LOSARTAN 50 MG TAB PO SCH (10:56)
[2017-09-09] MEDS: ASPIRIN 81 MG PO SCH (10:56)
[2017-09-09] MEDS: CLOPIDOGREL 75 MG TAB PO SCH (10:57)
--- NOTE | 2017-09-09 14:52 | P.PN ---
Subjective Progress Note Date: 09/09/17 This is a pleasant 82-year-old gentleman who follows regularly with Dr. Paras Nguyễn in the office. He has a known history of hypertension, hyperlipidemia, coronary artery disease with prior stenting of the mid and distal RCA in 2014, moderate aortic stenosis, GERD, and Zenker's diverticula. He presents to the hospital with symptoms of midsternal chest tightness with radiation down both of his arms. Patient states that he's been experiencing this discomfort off-and-on for the past 2 weeks. Initially the symptoms would occur when he was sleeping, he states now that he also notices symptoms just with getting up to go to the bathroom. He denies any associated diaphoresis or nausea, no shortness of breath. Initial EKG on presentation here shows normal sinus rhythm with anterior ST-T wave changes. Subsequent EKG shows normal sinus rhythm with anterior ST-T wave changes and lateral ST depression. Chest x -ray shows COPD and mild cardiomegaly. White blood cell count normal, hemoglobin 14.3, platelet count 165. D-dimer 1.76, potassium 4.9, BUN 32, creatinine 1.6. Troponins came back to be abnormal, 0.5, 0.6, 2.1. BNP level 2280. Amylase 169 on admission, 150 this morning, lipase 457 on admission, 497 this morning. Blood pressure this morning 104/60 with a heart rate in the 60s, temperature 97.1. Patient did state that this morning when he was getting up to use the urinal he had an episode of severe chest tightness with radiation down both of his arms. He was given sublingual nitroglycerin as well as Nitropaste and currently is pain-free. 09/09/2017 Patient was taken to the cardiac catheterization lab where he underwent PTCA and stenting of the proximal LAD. Patient was seen and examined this morning, no complaints of any chest discomfort. Right groin is soft with no evidence of any hematoma. EKG shows normal sinus rhythm with improvement in ST-T wave changes in the anterior leads. Blood pressure 2/70 with a heart rate in the 70s. Creat 1.5. Objective - Vital Signs Vital signs: Vital Signs Temp 97.1 F L 09/09/17 11:41 Pulse 72 09/09/17 11:45 Resp 16 09/09/17 11:45 BP 102/71 09/09/17 11:41 Pulse Ox 95 09/09/17 11:41 Intake & Output 09/08/17 09/09/17 09/09/17 18:59 06:59 18:59 Intake Total 126.7 1000 470 Output Total 300 Balance -173.3 1000 470 Weight 75.6 kg 74.7 kg Intake: IV 126.7 Intake, IV Titration 1000 Amount Sodium Chloride 0.9% 1, 1000 000 ml In Empty Bag 1 bag @ 1 ML/KG/HR 75.6 mls/hr IV .[id number] ONE Rx#: [id number] Oral 470 Output: Urine 300 Other: Voiding Method Urinal Urinal # Voids 0 1 - Exam PHYSICAL EXAMINATION: HEENT: Head is atraumatic, normocephalic. Pupils equal, round. Neck is supple. There is no elevated jugular venous pressure. HEART EXAMINATION: Heart S1 S2 1 systolic ejection murmur is heard. CHEST EXAMINATION: Lungs are clear to auscultation and precussion. No chest wall tenderness is noted on palpation or with deep breathing. ABDOMEN: Soft, nontender. Bowel sounds are heard. No organomegaly noted. Right groin soft, no evidence of any hematoma. EXTREMITIES: 2+ peripheral pulses with no evidence of peripheral edema and no calf tenderness noted. NEUROLOGIC patient is awake, alert and oriented -3. . - Labs CBC & Chem 7: 09/09/17 06:24 09/09/17 06:24 Labs: Abnormal Lab Results - Last 24 Hours (Table) 09/09/17 09/09/17 Range/Units 06:24 06:24 RBC 4.27 L (4.30-5.90) m/uL Hgb 12.3 L (13.0-17.5) gm/dL Hct 36.9 L (39.0-53.0) % Plt Count 131 L (150-450) k/uL BUN 25 H (9-20) mg/dL Creatinine 1.53 H (0.66-1.25) mg/dL Assessment and Plan Plan: Assessment and plan #1 chest tightness with radiation to bilateral arms, EKG shows normal sinus rhythm with anterior ST-T wave changes in lateral ST depression. Abnormal troponins, 0.5, 0.6, 2.1. Suggesting non-Q-wave myocardial infarction. #2 history of coronary artery disease with prior RCA stenting in 2015 #3 hypertension #4 moderate aortic stenosis #5 hyperlipidemia #6 GERD #7 Zenker's diverticula #8 acute on chronic renal insufficiency. Creatinine 1.5 #9 elevated amylase and lipase, amylase 150, lipase 497. Plan Patient underwent angioplasty with stenting of the LAD. Doing well overall today. We'll continue his current medications. Plan for possible discharge home in 24 hours if stable. DNP note has been reviewed, I agree with a documented findings and plan of care. Patient was seen and examined.
--- NOTE | 2017-09-09 15:26 | P.PN ---
Progress Note - Text Progress Note Date: 09/09/17 DATE OF SERVICE: 09/09/2017 PRESENTING COMPLAINT: Chest pain HISTORY OF PRESENT ILLNESS: 82-year-old male with known coronary artery disease presented to the emergency department with an episode of chest pressure, patient has been having these episodes for the previous 10 days. Last night episode was pressure across chest had decreased could barely sleep the whole night. Noted swelling to his extremities, admitted for the same, IV heparin initiated. INTERVAL HISTORY: 09/09/2017: Patient seen in follow-up, patient has been chest pain-free overnight has not yet been out of bed. Status post cardiac catheterization with drug-eluting stent placed to the proximal LAD. Right groin site clean dry and intact no hematoma. Remains in normal sinus rhythm. Appetite improving, passing gas, waiting for cardiology before he starts to get up and move around. 09/08/2017: Patient seen in follow-up, patient had another episode of chest pain this morning when he was getting up to use the urinal with radiation down both of his arms. Received sublingual nitro as well as Nitropaste. Patient was taken to the cardiac catheterization lab this morning. Patient remains nothing by mouth, in preparation for catheterization. REVIEW OF SYSTEMS: Done for constitutional ,cardiovascular, GI, pulmonary with relevant findings as above. CURRENT MEDICATIONS Xanax, Norvasc 5 mg by mouth at bedtime, aspirin 81 mg by mouth daily, Lipitor 80 mg by mouth at bedtime, Plavix 75 mg by mouth daily, heparin IV titrated protocol, Cozaar 100 mg by mouth daily, Toprol-XL 50 mg by mouth at bedtime, Nitro-Bid ointment 1 inch topicals every 6 hours. PHYSICAL EXAM VITAL SIGNS: Temperature 97.4, pulse 74, respiratory rate 16, blood pressure 110/70, oxygen saturation 98% on room air. GENERAL APPEARANCE: Lying in bed, not in distress. EYES: Pupils equal. Conjunctiva normal. NECK: JVD not raised. Mass not palpable. RESPIRATORY: Respiratory effort normal. Lungs diminished to auscultation. CARDIOVASCULAR: First and second sounds normal. No edema. ABDOMEN: Soft. Liver and spleen not palpable. No tenderness. No mass palpable. PSYCHIATRY: Alert and oriented x3. Mood and affect normal. INTEGUMENT: Right groin site clean dry and intact, no evidence of hematoma or bruising. INVESTIGATIONS: Hemoglobin 12.3, BUN 25, creatinine 1.53, ASSESSMENT: -Acute non-ST elevation myocardial infarction followed by a stent to the proximal LAD. -Hyperlipidemia. -Essential hypertension. -IV heparin monitoring. -Chronic kidney disease stage III likely hypertensive nephrosclerosis. PLAN: Patient is status post PTCA and stenting of the proximal LAD with a drug- eluting stent, continue current medication and treatment plan, plan of care discussed with the patient and at bedside. Discharge planning for the next 24 hours. We will follow closely. ELASTIC YARN TWISTER statement: Patient was seen and examined by nurse practitioner Denisse Goldberg and all elements of the case discussed with attending Dr. Decker
[2017-09-09] MEDS ORDERED: ATORVASTATIN 80 MG TAB PO SCH (21:00)
[2017-09-09] MEDS: METOPROLOL SUCCINATE (ER) 50 MG TAB.ER.24H PO SCH (21:14)
[2017-09-09] MEDS: amLODIPine 5 MG TAB PO SCH (21:14)
[2017-09-09 21:26] VITALS: RESP 18
--- NOTE | 2017-09-10 02:23 | PN ---
PROGRESS NOTE DATE OF SERVICE: 09/09/2017 ATTENDING NOTE: Patient was seen and examined by me. I discussed with my nurse practitioner, Ms. Goldberg. The patient seems to be doing much better. Up to the bathroom. No chest pain or shortness of breath. at the bedside. Did tolerate his breakfast. EXAMINATION: Temperature 97.1, pulse 72, respirations 18, blood pressure 102/71, pulse ox 95% on room air. LUNGS: Fair air entry. CARDIOVASCULAR: First and second sounds normal. INVESTIGATIONS: White count 5.8, potassium 4.5, BUN 25, creatinine 1.53. ASSESSMENT: 1. Acute non-ST elevated myocardial infarction followed by stent to the proximal left anterior descending. 2. Hyperlipidemia. 3. Chronic kidney stage 3. IV heparin will be discontinued. Patient getting IV fluids. Follow. MMODL / IJN: [id number] /
[2017-09-10 06:21] LABS: Potassium 4.5 mmol/L (3.5-5.1)
[2017-09-10] MEDS: SODIUM CHLORIDE 0.9% 1,000 ML IV SCH (09:20)
[2017-09-10] MEDS: CLOPIDOGREL 75 MG TAB PO SCH (09:21)
[2017-09-10] MEDS: ASPIRIN 81 MG PO SCH (09:21)
[2017-09-10] MEDS: LOSARTAN 50 MG TAB PO SCH (09:21)
[2017-09-10 11:56] VITALS: BP 124/71; PULSE 65; TEMP 97.1
--- NOTE | 2017-09-10 13:44 | P.PN ---
Subjective Progress Note Date: 09/10/17 This is a pleasant 82-year-old gentleman who follows regularly with Dr. Paras Nguyễn in the office. He has a known history of hypertension, hyperlipidemia, coronary artery disease with prior stenting of the mid and distal RCA in 2014, moderate aortic stenosis, GERD, and Zenker's diverticula. He presents to the hospital with symptoms of midsternal chest tightness with radiation down both of his arms. Patient states that he's been experiencing this discomfort off-and-on for the past 2 weeks. Initially the symptoms would occur when he was sleeping, he states now that he also notices symptoms just with getting up to go to the bathroom. He denies any associated diaphoresis or nausea, no shortness of breath. Initial EKG on presentation here shows normal sinus rhythm with anterior ST-T wave changes. Subsequent EKG shows normal sinus rhythm with anterior ST-T wave changes and lateral ST depression. Chest x -ray shows COPD and mild cardiomegaly. White blood cell count normal, hemoglobin 14.3, platelet count 165. D-dimer 1.76, potassium 4.9, BUN 32, creatinine 1.6. Troponins came back to be abnormal, 0.5, 0.6, 2.1. BNP level 2280. Amylase 169 on admission, 150 this morning, lipase 457 on admission, 497 this morning. Blood pressure this morning 104/60 with a heart rate in the 60s, temperature 97.1. Patient did state that this morning when he was getting up to use the urinal he had an episode of severe chest tightness with radiation down both of his arms. He was given sublingual nitroglycerin as well as Nitropaste and currently is pain-free. 09/09/2017 Patient was taken to the cardiac catheterization lab where he underwent PTCA and stenting of the proximal LAD. Patient was seen and examined this morning, no complaints of any chest discomfort. Right groin is soft with no evidence of any hematoma. EKG shows normal sinus rhythm with improvement in ST-T wave changes in the anterior leads. Blood /70 with a heart rate in the 70s. Creat 1.5. 09/10/2017 Patient was seen and examined this morning, denies any chest pain, breathing overall is stable. Blood pressure 120/70 with a heart rate in the 60s. 94% on room air. Potassium 4.5, BUN 30, creatinine 1.6. Objective - Vital Signs Vital signs: Vital Signs Temp 97.1 F L 09/10/17 11:56 Pulse 65 09/10/17 11:56 Resp 18 09/10/17 11:56 BP 124/71 09/10/17 11:56 Pulse Ox 94 L 09/10/17 11:56 Intake & Output 09/09/17 09/10/17 09/10/17 18:59 06:59 18:59 Intake Total 717 240 Balance 717 240 Weight 74.4 kg Intake: IV 10 Invasive Line 1 10 Oral 707 240 Other: Voiding Method Urinal Urinal Urinal # Voids 1 2 - Exam PHYSICAL EXAMINATION: HEENT: Head is atraumatic, normocephalic. Pupils equal, round. Neck is supple. There is no elevated jugular venous pressure. HEART EXAMINATION: Heart S1 S2 1 systolic ejection murmur is heard. CHEST EXAMINATION: Lungs are clear to auscultation and precussion. No chest wall tenderness is noted on palpation or with deep breathing. ABDOMEN: Soft, nontender. Bowel sounds are heard. No organomegaly noted. Right groin soft, no evidence of any hematoma. EXTREMITIES: 2+ peripheral pulses with no evidence of peripheral edema and no calf tenderness noted. NEUROLOGIC patient is awake, alert and oriented -3. . - Labs CBC & Chem 7: 09/09/17 06:24 09/10/17 05:48 Labs: Abnormal Lab Results - Last 24 Hours (Table) 09/10/17 Range/Units 05:48 BUN 30 H (9-20) mg/dL Creatinine 1.60 H (0.66-1.25) mg/dL Assessment and Plan Plan: Assessment and plan #1 chest tightness with radiation to bilateral arms, EKG shows normal sinus rhythm with anterior ST-T wave changes in lateral ST depression. Abnormal troponins, 0.5, 0.6, 2.1. Suggesting non-Q-wave myocardial infarction. #2 history of coronary artery disease with prior RCA stenting in 2014 #3 hypertension #4 moderate aortic stenosis #5 hyperlipidemia #6 GERD #7 Zenker's diverticula #8 acute on chronic renal insufficiency. Creatinine 1.5 #9 elevated amylase and lipase, amylase 150, lipase 497. Plan Patient underwent angioplasty with stenting of the LAD. Doing well overall today. We'll continue his current medications. He may be able to be discharged home today from cardiology's perspective. We will make him a follow- up appointment to see Dr. SADI Nguyễn in the office post discharge. DNP note has been reviewed, I agree with a documented findings and plan of care. Patient was seen and examined.
--- NOTE | 2017-09-10 19:48 | DS ---
DISCHARGE SUMMARY FINAL DIAGNOSES: 1. Acute bij-RA-otbkubj-elevation myocardial infarction. 2. Hyperlipidemia. 3. Essential hypertension. 4. Intravenous heparin monitoring. 5. Chronic kidney disease, stage III, likely hypertensive nephrosis. 6. Ischemic cardiomyopathy with ejection fraction of 30% to 35% from underlying coronary artery disease. 7. 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 PROCEDURE: 1. Cardiac catheterization by Dr. Jose Ramon Nguyễn with angioplasty and stent to the LAD with a drug-eluting stent. CONSULTATION: Dr. Jose Ramon Nguyễn from Cardiology. HOSPITAL COURSE: This is a patient with known coronary artery disease. He presented with acute non-ST- elevation myocardial infarction. Coronary intervention was carried out as above. At the time of discharge, patient is up and about. No further chest pain or shortness of breath. BUN and creatinine are 30 and 1.6. Questions were answered. The patient was cleared by Cardiology to go home. Care was discussed with the patient and his . Additionally, the patient has a history of coronary artery disease with prior RCA stenting in 2014. Patient's amylase and lipase are slightly elevated; in the setting of renal failure, it is not of much consequence because it is renally cleared, and these levels can also be slightly elevated. The patient did also have a 2-D echocardiogram that showed an EF of 30% to 35% and also showed moderate to severe aortic valve sclerosis. DISCHARGE MEDICATIONS: 1. Losartan 100 mg p.o. daily. 2. Toprol XL 50 mg at bedtime. 3. Norvasc 5 mg p.o. at bedtime. 4. Lipitor 80 mg at bedtime. 5. Plavix 75 mg p.o. daily. 6. Aspirin 81 mg p.o. daily. 7. Maalox 30 mL p.o. q.4 p.r.n. 8. Nitrostat 0.4 sublingually q.5 p.r.n. DISCHARGE INSTRUCTIONS: 1. Follow up with Dr. Jose Ramon Nguyễn in 1 week. 2. Follow up with Dr. Pitts on 09/11/17. 3. Cardiac catheterization orders as per Cardiology. MMODL / IJN: [id number] /
== END 2017-09-10 14:49 | disposition home or self-care (01) | DRG 247 ==
LOC: EC 11:54 → 6SEL 15:33
PROVIDERS: ADMIT Hospitalist; ATTEND Hospitalist
PROC: 027034Z Dilation of Coronary Artery, One Artery with Drug-eluting Intraluminal Device, Percutaneous Approach (ICD-10-PCS; principal; 2017-09-07)
PROC: B2151ZZ Fluoroscopy of Left Heart using Low Osmolar Contrast (ICD-10-PCS; principal; 2017-09-07)
PROC: 4A023N7 Measurement of Cardiac Sampling and Pressure, Left Heart, Percutaneous Approach (ICD-10-PCS; principal; 2017-09-07)
PROC: B2111ZZ Fluoroscopy of Multiple Coronary Arteries using Low Osmolar Contrast (ICD-10-PCS; principal; 2017-09-07)
DX: I21.4 Non-ST elevation (NSTEMI) myocardial infarction (principal); J44.9 Chronic obstructive pulmonary disease, unspecified; N18.3 Chronic kidney disease, stage 3 (moderate); I35.0 Nonrheumatic aortic (valve) stenosis; I12.9 Hypertensive chronic kidney disease with stage 1 through stage 4 chronic kidney disease, or unspecified chronic kidney disease; E78.5 Hyperlipidemia, unspecified; I25.10 Atherosclerotic heart disease of native coronary artery without angina pectoris; I25.5 Ischemic cardiomyopathy; K21.9 Gastro-esophageal reflux disease without esophagitis; K22.5 Diverticulum of esophagus, acquired; Z79.02 Long term (current) use of antithrombotics/antiplatelets; Z79.82 Long term (current) use of aspirin; Z79.899 Other long term (current) drug therapy; Z86.73 Personal history of transient ischemic attack (TIA), and cerebral infarction without residual deficits; Z87.891 Personal history of nicotine dependence; Z88.0 Allergy status to penicillin
CPT/HCPCS: 36415; 71020; 80048; 80053; 80061; 82150; 82550; 82553; 83690; 83735; 83880; 84484; 85025; 85379; 85610; 85730; 93005; 93306; 93458; 94640; 96365; 96375; 99291

== ENCOUNTER → 2018-04-06 | Outpatient (CLI) | payer MEDICARE, BC ==
--- NOTE | 2018-04-06 15:40 | US ---
EXAMINATION TYPE: US kidneys/renal and bladder DATE OF EXAM: 04/06/2018 COMPARISON: NONE CLINICAL HISTORY: R94.4 Abnormal results of kidney function studies. Abnormal kidney function EXAM MEASUREMENTS: Right Kidney: 9.1 x 3.7 x 4.2 cm Left Kidney: 9.4 x 4.2 x 3.8 cm Right Kidney: dense echogenic area mid = 0.8cm, probable stone this has some posterior shadowing. Left Kidney: cystic areas noted, largest = 1.3 x 1.3 x 1.5cm Bladder: appears wnl as visualized Bilateral Jets seen: yes IMPRESSION: 1. Right renal stones.
== END | disposition home or self-care (01) ==
LOC: RADUSWWP 14:25
PROVIDERS: ATTEND Family Medicine
DX: N20.0 Calculus of kidney (principal)
CPT/HCPCS: 76770

== ENCOUNTER → 2019-03-09 | Outpatient (CLI) | payer MEDICARE, BC ==
--- NOTE | 2019-03-09 10:02 | US ---
EXAMINATION TYPE: US duplex aorta DATE OF EXAM: 03/09/2019 COMPARISON: CT angio chest 07/05/2016 CLINICAL HISTORY: I71.9 Aortic aneurysm. Difficult and limited exam due to overlying bowel gas EXAM MEASUREMENTS: Abdominal Aorta: Proximal: Obscured by bowel gas Mid: 2.2 x 2.4 x 2.4 cm Distal: 2.7 x 2.4 x 2.7 cm Bifurcation: RT: 1.2 x 1.2 x 1.2 cm LT: 1.2 x 1.3 x 1.5 cm Proximal portion is obscured by bowel gas. Moderate/severe amount of plaque visualized. Left iliac me asuring upper limits of normal. IMPRESSION: 1. 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 2. Ectasia of the left common iliac artery also measuring upper limits of normal.
== END | disposition home or self-care (01) ==
LOC: RADUSWWP 08:10
PROVIDERS: ATTEND Family Medicine
DX: I77.811 Abdominal aortic ectasia (principal); I77.89 Other specified disorders of arteries and arterioles
CPT/HCPCS: 93979

== ENCOUNTER 2019-08-25 21:25 | Inpatient (IN) | payer MEDICARE, BC ==
--- NOTE | 2019-08-25 21:41 | ED ---
GI Bleed HPI - General Stated complaint: Diarrhea,GI Bleed Time Seen by Provider: 08/25/19 21:28 Source: patient, EMS Mode of arrival: EMS Limitations: no limitations - History of Present Illness Initial comments: Frank is a pleasant 84 yo male who presents to the ER today via EMS for evaluation of one episode dark stool. Patient states that this evening he had the sudden urge to have a bowel movement, he was unable to make it all the way to the toilet and had an accident. He noted that his stool was black in color. Patient reports he has dealt with this in the past, approximately 7 or 8 months ago when he was living in [place] he had black stools, he underwent a colon oscopy and EGD with no definitive findings. He was advised to take iron daily which he has not been compliant with. Patient reports that aside from the single episode of dark stools he's been feeling well. He has not had any nausea or vomiting abdominal pain, fevers chills chest pain palpitations or lightheadedness. Patient reports she's been eating and drinking well. - Related Data Home Medications Medication Instructions Recorded Confirmed Losartan Potassium 100 mg PO DAILY 06/07/15 08/25/19 Metoprolol Succinate [Toprol XL] 50 mg PO HS 06/07/15 08/25/19 amLODIPine BESYLATE [Norvasc] 5 mg PO HS 06/19/15 08/25/19 Aspirin [Adult Low Dose Aspirin EC] 81 mg PO DAILY 09/07/17 08/25/19 Cholecalciferol [Vitamin D3 (25 1,000 unit PO DAILY 08/25/19 08/25/19 Mcg = 1000 Iu)] Ferrous Sulfate [Iron (65 MG 325 mg PO DAILY 08/25/19 08/25/19 Elemental)] Simethicone 80 mg PO DAILY PRN 08/25/19 08/25/19 diphenhydrAMINE HCL [Benadryl] 25 mg PO HS PRN 08/25/19 08/25/19 Previous Rx's Medication Instructions Recorded Atorvastatin [Lipitor] 80 mg PO HS #60 tab 06/22/15 Clopidogrel [Plavix] 75 mg PO DAILY #90 tab 06/22/15 Nitroglycerin Sl Tabs [Nitrostat] 0.4 mg SUBLINGUAL Q5M PRN #21 tab 09/10/17 Allergies Allergy/AdvReac Type Severity Reaction Status Date / Time Penicillins Allergy Rash/Hives Verified 09/07/17 12:40 Review of Systems ROS Statement: Those systems with pertinent positive or pertinent negative responses have been documented in the HPI. ROS Other: All systems not noted in ROS Statement are negative. Past Medical History Past Medical History: Coronary Artery Disease (CAD), Cancer, CVA/TIA, Hyperlipidemia, Hypertension Additional Past Medical History / Comment(s): irreg. 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 08-27-17 Past Anesthesia/Blood Transfusion Reactions: No Reported Reaction Past Psychological History: No Psychological Hx Reported Smoking Status: Former smoker Past Alcohol Use History: Rare Past Drug Use History: None Reported - Past Family History Mother Family Medical History: No Reported History General Exam - General Exam Comments Initial Comments: Physical Exam GENERAL: Patient is well-developed and well-nourished. Patient is nontoxic and well- hydrated and is in no distress. HENT: Normocephalic, Atraumatic. EYES: PERRL, EOMI No conjunctival pallor PULMONARY: Unlabored respirations. No audible rales rhonchi or wheezing was noted. CARDIOVASCULAR: Blowing holosystolic murmur Warm and well perfused extremities ABDOMEN: Soft and nontender with normal bowel sounds. SKIN: Skin is clear with no lesions or rashes and otherwise unremarkable. : Deferred NEUROLOGIC: Patient is alert and oriented x3. Moving all extremities spontaneously MUSCULOSKELETAL: Normal extremities with adequate strength and full range of motion. No lower extremity swelling or edema. No calf tenderness. PSYCHIATRIC: Normal psychiatric evaluation. 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 Patient presenting today with a single episode of melena. Patient noted to have melanotic stool on his pants as well as his buttocks. Labs were ordered. Protonix was ordered Patient hemoglobin is decreased from previous however it is still greater than 10 he is hemodynamically stable and there is no indication for transfusion at this time. Patient also noted to have an elevated BUN consistent with upper GI bleed, just seems mildly elevated but there are no KG changes. Patient will be admitted for upper GI bleeding, melena and LAILA. Patient and family aware of plan and agreeable. Dr Ledesma recommends admission to Dr Decker per PCP preference. - Lab Data Result diagrams: 08/25/19 21:45 08/25/19 21:45 Lab Results 08/25/19 08/25/19 08/25/19 Range/Units 21:45 21:45 21:45 WBC 10.2 (3.8-10.6) k/uL RBC 3.72 L (4.30-5.90) m/uL Hgb 10.7 L (13.0-17.5) gm/dL Hct 33.1 L (39.0-53.0) % MCV 89.1 (80.0-100.0) fL MCH 28.8 (25.0-35.0) pg MCHC 32.4 (31.0-37.0) g/dL RDW 13.1 (11.5-15.5) % Plt Count 153 (150-450) k/uL Neutrophils % 77 % Lymphocytes % 11 % Monocytes % 6 % Eosinophils % 4 % Basophils % 1 % Neutrophils # 7.8 H (1.3-7.7) k/uL Lymphocytes # 1.1 (1.0-4.8) k/uL Monocytes # 0.7 (0-1.0) k/uL Eosinophils # 0.4 (0-0.7) k/uL Basophils # 0.1 (0-0.2) k/uL Hypochromasia Slight PT 10.7 (9.0-12.0) sec INR 1.0 (<1.2) APTT 18.5 L (22.0-30.0) sec Sodium 142 (137-145) mmol/L Potassium 5.8 H (3.5-5.1) mmol/L Chloride 111 H (98-107) mmol/L Carbon Dioxide 23 (22-30) mmol/L Anion Gap 8 mmol/L BUN 55 H (9-20) mg/dL Creatinine 1.89 H (0.66-1.25) mg/dL Est GFR (CKD-EPI)AfAm 37 (>60 ml/min/1.73 sqM) Est GFR (CKD-EPI)NonAf 32 (>60 ml/min/1.73 sqM) Glucose 126 H (74-99) mg/dL Calcium 8.5 (8.4-10.2) mg/dL Total Bilirubin 0.3 (0.2-1.3) mg/dL AST 19 (17-59) U/L ALT 14 L (21-72) U/L Alkaline Phosphatase 43 (38-126) U/L Troponin I (0.000-0.034) ng/mL Total Protein 6.5 (6.3-8.2) g/dL Albumin 3.3 L (3.5-5.0) g/dL Stool Occult Blood (Negative) Blood Type Blood Type Recheck Bld Type Recheck Status Antibody Screen Spec Expiration Date 08/25/19 08/25/19 08/25/19 Range/Units 21:45 21:45 22:45 WBC (3.8-10.6) k/uL RBC (4.30-5.90) m/uL Hgb (13.0-17.5) gm/dL Hct (39.0-53.0) % MCV (80.0-100.0) fL MCH (25.0-35.0) pg MCHC (31.0-37.0) g/dL RDW (11.5-15.5) % Plt Count (150-450) k/uL Neutrophils % % Lymphocytes % % Monocytes % % Eosinophils % % Basophils % % Neutrophils # (1.3-7.7) k/uL Lymphocytes # (1.0-4.8) k/uL Monocytes # (0-1.0) k/uL Eosinophils # (0-0.7) k/uL Basophils # (0-0.2) k/uL Hypochromasia PT (9.0-12.0) sec INR (<1.2) APTT (22.0-30.0) sec Sodium (137-145) mmol/L Potassium (3.5-5.1) mmol/L Chloride (98-107) mmol/L Carbon Dioxide (22-30) mmol/L Anion Gap mmol/L BUN (9-20) mg/dL Creatinine (0.66-1.25) mg/dL Est GFR (CKD-EPI)AfAm (>60 ml/min/1.73 sqM) Est GFR (CKD-EPI)NonAf (>60 ml/min/1.73 sqM) Glucose (74-99) mg/dL Calcium (8.4-10.2) mg/dL Total Bilirubin (0.2-1.3) mg/dL AST (17-59) U/L ALT (21-72) U/L Alkaline Phosphatase (38-126) U/L Troponin I <0.012 (0.000-0.034) ng/mL Total Protein (6.3-8.2) g/dL Albumin (3.5-5.0) g/dL Stool Occult Blood Positive (Negative) Blood Type AB Positive Blood Type Recheck No Previous Record Bld Type Recheck Status CABO Indicated Antibody Screen NEGATIVE Spec Expiration Date 08/28/2019 - 2285 - EKG Data -: EKG Interpreted by Me EKG shows normal: sinus rhythm EKG Comments: EKG was obtained at 2302, rate is 81 rhythm is sinus there is for axis, prolonged ID 202, QRS is 116, QTC is 460 there is no acute ST elevations or depressions or evidence of acute ischemia or infarction. Hyperacute T waves in lead V2 but no other T-wave abnormalities noted. Disposition Clinical Impression: Melena, Anemia, LAILA (acute kidney injury), Renal insufficiency Disposition: ADMITTED IP TO THIS HOSP Condition: Serious
[2019-08-25] MEDS ORDERED: PANTOPRAZOLE 40 MG/10 ML VIAL IVP STA (21:55)
[2019-08-25] MEDS ORDERED: SODIUM CHLORIDE 0.9% 500 ML 500 ML IV STA (21:55)
[2019-08-25 22:19] LABS: Basophils # (A) 0.1 k/uL (0-0.2); Basophils % (A) 1 %; Eosinophils # (A) 0.4 k/uL (0-0.7); Eosinophils % (A) 4 %; HCT 33.1 % (39.0-53.0); HGB 10.7 gm/dL (13.0-17.5); Hypochromasia Slight; Lymphocytes # (A) 1.1 k/uL (1.0-4.8); Lymphocytes % (A) 11 %; MCH 28.8 pg (25.0-35.0); MCHC 32.4 g/dL (31.0-37.0); MCV 89.1 fL (80.0-100.0); Mean Platelet Volume 7.9; Monocytes # (A) 0.7 k/uL (0-1.0); Monocytes % (A) 6 %; Neutrophils # (A) 7.8 k/uL (1.3-7.7); Neutrophils % (A) 77 %; Platelet Count 153 k/uL (150-450); RBC 3.72 m/uL (4.30-5.90); RDW 13.1 % (11.5-15.5); WBC 10.2 k/uL (3.8-10.6)
[2019-08-25 22:30] LABS: Albumin 3.3 g/dL (3.5-5.0); Calcium 8.5 mg/dL (8.4-10.2); Potassium 5.8 mmol/L (3.5-5.1); Total Bilirubin 0.3 mg/dL (0.2-1.3); Total Protein 6.5 g/dL (6.3-8.2)
[2019-08-25 22:39] LABS: Prothrombin Time 10.7 sec (9.0-12.0)
[2019-08-25 22:49] LABS: Partial Thromboplastin Time 18.5 sec (22.0-30.0)
[2019-08-25] MEDS ORDERED: NALOXONE 0.4 MG/ML 1 ML VIAL IV PRN (22:53)
[2019-08-26] MEDS: SODIUM CHLORIDE 0.9% 1,000 ML IV SCH ×2 (04:16→19:19)
[2019-08-26 07:44] LABS: Basophils % (A) 0 %; Eosinophils % (A) 1 %; HCT 30.9 % (39.0-53.0); HGB 9.7 gm/dL (13.0-17.5); Hypochromasia Moderate; Lymphocytes # (A) 0.9 k/uL (1.0-4.8); Lymphocytes % (A) 12 %; MCH 28.7 pg (25.0-35.0); MCHC 31.4 g/dL (31.0-37.0); MCV 91.5 fL (80.0-100.0); Mean Platelet Volume 6.9; Monocytes # (A) 0.4 k/uL (0-1.0); Monocytes % (A) 5 %; Neutrophils # (A) 5.8 k/uL (1.3-7.7); Neutrophils % (A) 81 %; Platelet Count 147 k/uL (150-450); RBC 3.38 m/uL (4.30-5.90); WBC 7.2 k/uL (3.8-10.6)
[2019-08-26 07:55] LABS: Albumin 3.1 g/dL (3.5-5.0); Calcium 8.4 mg/dL (8.4-10.2); Magnesium 2.1 mg/dL (1.6-2.3); Potassium 5.7 mmol/L (3.5-5.1); Total Bilirubin 0.4 mg/dL (0.2-1.3); Total Protein 6.3 g/dL (6.3-8.2)
[2019-08-26] MEDS: PANTOPRAZOLE 40 MG/10 ML VIAL IV SCH (08:34)
[2019-08-26] MEDS ORDERED: NITROGLYCERIN SL TABS 0.4 MG TAB SUBLINGUAL PRN (13:00)
[2019-08-26] MEDS ORDERED: IV FLUID CONTINUATION 400 ML IV ONE (13:25)
[2019-08-26] MEDS ORDERED: LIDOCAINE 1% INJ 10MG/ML (20 ML MDV) ONE (13:27)
[2019-08-26] MEDS ORDERED: PROPOFOL 10 MG/ML 20 ML VIAL IV ONE (13:27)
--- NOTE | 2019-08-26 13:54 | P.PCN ---
Date of Procedure: 08/26/19 Procedure(s) Performed: BRIEF HISTORY: Patient is a 84-year-old, pleasant,, white male admitted hospital with black tarry stools that happened last night. His initial hemoglobin was 10.7 dropped to 9.5 g/dL. He scheduled for an upper endoscopy to evaluate further. He has severe episode and severely of this year while in [place] and had an upper endoscopy as well as colonoscopy and was noted to have polyps.. PROCEDURE PERFORMED: Esophagogastroduodenoscopy. PREOPERATIVE DIAGNOSIS: Melena of 1 day duration. IV sedation per anesthesia. PROCEDURE: After informed consent was obtained, the patient was brought into the endoscopy unit. IV sedation was administered by Anesthesia under continuous monitoring. Initially the Olympus GIF-140 video endoscope was inserted into the mouth. Esophagus intubated without any difficulty. It was gradually advanced into the stomach and duodenum and carefully examined. The bulb and the second part of the duodenum appeared normal. The scope at this time was withdrawn to the stomach, adequately insufflated with air, and upon careful examination, there was some old blood with clots noted in the fundus of the stomach was thoroughly irrigated. Upon careful examination mucosa of the antrum appeared normal. In the proximal body the stomach there were 3 linear erosions noted just distal to the GE junction with some adherent clots but no active bleeding. This appears to be the source of bleeding. The scope was then withdrawn into the esophagus. The GE junction was located at 39 cm from the incisors. The distal esophagus appeared somewhat tortuous but no esophagitis seen. The rest of the esophagus appeared normal. There were no erosions or ulcerations seen and the patient tolerated the procedure well. IMPRESSION: 1. Old blood with clots noted in the fundus of the stomach. 2. 3 linear erosions in the proximal body the stomach with adherent clot but no active bleeding. 3. Tortuous distal esophagus. RECOMMENDATIONS: The findings of this examination were discussed with the patient as well as his family. He'll be continued on Protonix 40 mg twice daily. Repeat CBC in the morning. Hold aspirin and Plavix for 1 week..
--- NOTE | 2019-08-26 17:19 | CONS ---
CONSULTATION DATE OF SERVICE: 08/26/2019 REQUESTING PHYSICIAN: Dr. Decker. REASON FOR CONSULTATION: Acute GI bleed. HISTORY OF PRESENT ILLNESS: The patient is an 84-year-old pleasant white male came into the emergency room yesterday evening after having an episode of black tarry stools at home. The patient denies any abdominal pain. He reports no nausea, vomiting. He just felt crampy in the lower abdominal area and had a brown bowel movement followed by large liquid bloody black bowel movement. He came into the emergency room, was initially noted to have a hemoglobin of 10.7, dropped to 9.5 g/dL. Since being in the hospital, he did not have any further episodes of bleeding. The patient states that he had a similar episode with acute GI bleed while he was in [place] in November of this year. He underwent an upper endoscopy as well as colonoscopy and was noted to have some polyps. Since then, he did not have any other problems. He has history of coronary artery disease. He is on aspirin and Plavix. PAST MEDICAL HISTORY: Hypertension, hyperlipidemia, coronary artery disease. MEDICATIONS: At home, Lipitor, aspirin and Plavix, losartan, Toprol, Nitrostat, Norvasc, Benadryl and iron sulfate. ALLERGIES: PENICILLIN. SOCIAL HISTORY: No smoking. No alcohol use. FAMILY HISTORY: Unremarkable. PAST SURGICAL HISTORY: EGD, colonoscopy in November of 2018 in [place] and hiatal hernia repair, benign growth removed from the throat. FAMILY HISTORY: Unremarkable. REVIEW OF SYSTEMS: CARDIOPULMONARY: No chest pain, shortness of breath. GENITOURINARY: No dysuria or hematuria. MUSCULOSKELETAL unremarkable. SKIN unremarkable. ENDOCRINE unremarkable. PSYCHIATRIC unremarkable. NEUROLOGY unremarkable. ENT/vision unremarkable. CONSTITUTIONAL: No recent weight loss. No fever, chills, night sweats. PHYSICAL EXAMINATION: He appears comfortable. No apparent distress. Vital signs stable. Blood pressure is 112/71, pulse 89, temperature 98.1. HEENT examination unremarkable. Conjunctivae pink. Sclerae anicteric. Oral cavity no lesions. NECK: No JVD or lymph node enlargement. CHEST: Clear to auscultation. HEART: Regular rate and rhythm. ABDOMEN: Soft. Bowel sounds are positive. No organomegaly. EXTREMITIES: No rashes. NEUROLOGICAL: He is alert and oriented times three. No focal deficits. LABS: WBC 10.2, hemoglobin 10.7, platelets are normal. BUN was 55 and creatinine 1.83. Today, BUN is 76 and creatinine is 1.83, hemoglobin is down to 9.7, platelets 147 and WBC 7.2. Hemoccult was positive. IMPRESSION: 1. This is a patient who presents to the hospital with black tarry stools that happened yesterday evening. He did not have any further bleeding since admission to the hospital. Initial hemoglobin was 10.7 and dropped to 9.7 g/dL. He had a similar episode in November of this year while in [place]. He had an EGD and a colonoscopy and according to the patient, they found some colon polyps. Presently hemodynamically stable and no active bleeding since being in the hospital. Most likely we are dealing with an upper gastrointestinal source of bleeding. 2. History of coronary artery disease, on aspirin and Plavix, currently on hold. 3. Hypertension/hyperlipidemia. 4. Elevated BUN and creatinine. Question about acute kidney injury versus chronic kidney disease. The BUN could be elevated as a result of upper gastrointestinal bleed. RECOMMENDATIONS: 1. Keep him n.p.o. 2. We will proceed with an upper endoscopy today and if negative, consider a small bowel capsule endoscopy during this hospitalization. 3. Continue with IV Protonix 40 mg q.12 hours. 4. CBC on a daily basis and we will follow with you closely during this hospital stay. Thank you for this consultation. MMKUNALL / ALEXANDERN: [id number] /
[2019-08-26] MEDS ORDERED: amLODIPine 5 MG TAB PO SCH (21:00)
[2019-08-26] MEDS: ATORVASTATIN 80 MG TAB PO SCH (21:37)
[2019-08-26] MEDS: METOPROLOL SUCCINATE (ER) 50 MG TAB.ER.24H PO SCH (21:37)
--- NOTE | 2019-08-26 22:00 | P.HPIM ---
History of Present Illness H&P Date: 08/26/19 Chief Complaint: Black stool History of presenting complaint: This is a very pleasant 84-year-old patient of Dr. Shade Pitts. Chronic stable medical conditions include coronary artery disease with an acute [place] in 2017, hyperlipidemia, hypertension, chronic kidney disease stage III, CHF with EF of 3035%, water to severe aortic valve sclerosis. Patient has a stent to the LAD. Patient presented one-day history of Patel 2 months of DrDeuce liquid nida. No abdominal pain. No nausea vomiting. Patient has been losing some weight and decreased appetite. Patient's significant other is present. No fever or chills. This episode happened yesterday. Review of systems: GEN.: Weak tired decreased appetite EYES: None HEENT: None NECK: None RESPIRATORY: None CARDIOVASCULAR: None GASTROINTESTINAL: As above GENITOURINARY: None MUSCULOSKELETAL: Joint pains LYMPHATICS: None HEMATOLOGICAL: None PSYCHIATRY: None NEUROLOGICAL: None Social history: Does smoke in the past. Alcohol rarely. Retired from [employer] and [employer] . Lives with his girlfriend for a long time Family history: Reviewed, noncontributory to presentation Physical examination: VITAL SIGNS: 98.2, 82, 20, 113/75,100%roomair GENERAL: BMI 22.9, laying in bed awake. EYES: [Pupils equal. Conjunctiva pale l. HEENT: External appearance of nose and ears normal, oral cavity grossly normal. NECK: JVD not raised; masses not palpable. HEART: First and second heart sounds are normal; no edema. LUNGS: Respiratory rate normal; decreased breath sounds. ABDOMEN: Soft, nontender, liver spleen not palpable, no masses palpable. PSYCH: Alert and oriented x3; mood and affect normal. NEUROLOGICAL: Cranial nerves grossly intact; no facial asymmetry, power and sensation grossly intact. LYMPHATICS: No lymph nodes palpable in the axilla and neck MUSCULOSKELETAL evidence of OA especially in the hands INVESTIGATIONS, reviewed in the clinical context: White count 10.2 hemoglobin 10.7 repeat 10.7 platelets 153 potassium 5. 8 repeat 4.7 bun 55 creatinine 1.89 Assessment: -Acute GI bleed possibly upper in a patient who is on aspirin and Plavix -Coronary artery disease with stent to LAD in 2017 -Hyperlipidemia -Essential hypertension -Chronic kidney disease stage III likely from hypertensive nephrosclerosis -Ischemic cardiomyopathy EF 30-35% -Moderate to severe aortic valve sclerosis -Primary osteoarthritis Plan: -Patient antiplatelet agents were held. Patient's problem PPI. Other medications are reviewed. Blood pressure was monitored closely. GI was consulted. Planning for a endoscopy this afternoon. Care was discussed with the patient and significant other the bedside. Past Medical History Past Medical History: Coronary Artery Disease (CAD), Cancer, CVA/TIA, Hyperlipidemia, Hypertension Additional Past Medical History / Comment(s): irreg. 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 08-27-17 Past Anesthesia/Blood Transfusion Reactions: No Reported Reaction Past Psychological History: No Psychological Hx Reported Smoking Status: Former smoker Past Alcohol Use History: Rare Past Drug Use History: None Reported - Past Family History Mother Family Medical History: No Reported History Medications and Allergies Home Medications Medication Instructions Recorded Confirmed Type Losartan Potassium 100 mg PO DAILY 06/07/15 08/25/19 History Metoprolol Succinate [Toprol XL] 50 mg PO HS 06/07/15 08/25/19 History amLODIPine BESYLATE [Norvasc] 5 mg PO HS 06/19/15 08/25/19 History Atorvastatin [Lipitor] 80 mg PO HS #60 tab 06/22/15 08/25/19 Rx Clopidogrel [Plavix] 75 mg PO DAILY #90 tab 06/22/15 08/25/19 Rx Aspirin [Adult Low Dose Aspirin EC] 81 mg PO DAILY 09/07/17 08/25/19 History Nitroglycerin Sl Tabs [Nitrostat] 0.4 mg SUBLINGUAL Q5M PRN #21 tab 09/10/17 08/25/19 Rx Cholecalciferol [Vitamin D3 (25 1,000 unit PO DAILY 08/25/19 08/25/19 History Mcg = 1000 Iu)] Ferrous Sulfate [Iron (65 MG 325 mg PO DAILY 08/25/19 08/25/19 History Elemental)] Simethicone 80 mg PO DAILY PRN 08/25/19 08/25/19 History diphenhydrAMINE HCL [Benadryl] 25 mg PO HS PRN 08/25/19 08/25/19 History Allergies Allergy/AdvReac Type Severity Reaction Status Date / Time Penicillins Allergy Rash/Hives Verified 09/07/17 12:40 Physical Exam Vitals: Vital Signs Temp Pulse Pulse Resp BP BP Pulse Ox 08/26/19 07:00 98.1 F 89 16 112/71 97 08/26/19 00:30 97.6 F 77 16 102/67 97 08/26/19 00:14 98.3 F 88 20 102/86 96 08/25/19 23:00 80 18 108/72 99 08/25/19 22:30 81 20 113/75 98 08/25/19 21:32 98.2 F 82 20 100 Intake and Output 08/25/19 08/26/19 08/26/19 22:59 06:59 14:59 Intake Total 0 Balance 0 Intake: Oral 0 Other: Voiding Method Urinal # Voids 1 Weight 70.307 kg Results CBC & Chem 7: 08/26/19 07:20 08/26/19 07:20 Labs: Abnormal Lab Results - Last 24 Hours (Table) 08/25/19 08/25/19 08/25/19 Range/Units 21:45 21:45 21:45 RBC 3.72 L (4.30-5.90) m/uL Hgb 10.7 L (13.0-17.5) gm/dL Hct 33.1 L (39.0-53.0) % Plt Count (150-450) k/uL Neutrophils # 7.8 H (1.3-7.7) k/uL Lymphocytes # (1.0-4.8) k/uL APTT 18.5 L (22.0-30.0) sec Potassium 5.8 H (3.5-5.1) mmol/L Chloride 111 H (98-107) mmol/L Carbon Dioxide (22-30) mmol/L BUN 55 H (9-20) mg/dL Creatinine 1.89 H (0.66-1.25) mg/dL Glucose 126 H (74-99) mg/dL AST (17-59) U/L ALT 14 L (21-72) U/L Albumin 3.3 L (3.5-5.0) g/dL 08/26/19 08/26/19 Range/Units 07:20 07:20 RBC 3.38 L (4.30-5.90) m/uL Hgb 9.7 L (13.0-17.5) gm/dL Hct 30.9 L (39.0-53.0) % Plt Count 147 L (150-450) k/uL Neutrophils # (1.3-7.7) k/uL Lymphocytes # 0.9 L (1.0-4.8) k/uL APTT (22.0-30.0) sec Potassium 5.7 H (3.5-5.1) mmol/L Chloride 115 H (98-107) mmol/L Carbon Dioxide 19 L (22-30) mmol/L BUN 76 H (9-20) mg/dL Creatinine 1.83 H (0.66-1.25) mg/dL Glucose 113 H (74-99) mg/dL AST 16 L (17-59) U/L ALT 14 L (21-72) U/L Albumin 3.1 L (3.5-5.0) g/dL Thrombosis Risk Factor Assmnt - Choose All That Apply Each Risk Factor Represents 3 Points: Age 75 years or older Thrombosis Risk Factor Assessment Total Risk Factor Score: 3 Thrombosis Risk Factor Assessment Level: Moderate Risk
[2019-08-27] MEDS: PANTOPRAZOLE 40 MG/10 ML VIAL IV SCH (08:42)
[2019-08-27] MEDS: SODIUM CHLORIDE 0.9% 1,000 ML IV SCH ×2 (08:43→16:28)
[2019-08-27 09:27] LABS: HGB 8.5 gm/dL (13.0-17.5); Hypochromasia Slight; MCH 29.3 pg (25.0-35.0); MCHC 32.8 g/dL (31.0-37.0); MCV 89.3 fL (80.0-100.0); Mean Platelet Volume 7.5; Platelet Count 118 k/uL (150-450); RBC 2.91 m/uL (4.30-5.90); RDW 13.5 % (11.5-15.5); WBC 6.6 k/uL (3.8-10.6)
[2019-08-27 09:52] LABS: Calcium 8.5 mg/dL (8.4-10.2); Potassium 4.2 mmol/L (3.5-5.1)
[2019-08-27 16:40] LABS: Basophils % (A) 0 %; Eosinophils # (A) 0.3 k/uL (0-0.7); Eosinophils % (A) 6 %; HCT 24.9 % (39.0-53.0); HGB 8.2 gm/dL (13.0-17.5); Lymphocytes # (A) 1.3 k/uL (1.0-4.8); Lymphocytes % (A) 24 %; MCHC 32.8 g/dL (31.0-37.0); MCV 88.6 fL (80.0-100.0); Monocytes # (A) 0.4 k/uL (0-1.0); Monocytes % (A) 8 %; Neutrophils # (A) 3.1 k/uL (1.3-7.7); Neutrophils % (A) 60 %; Platelet Count 105 k/uL (150-450); RBC 2.81 m/uL (4.30-5.90); RDW 13.6 % (11.5-15.5); WBC 5.3 k/uL (3.8-10.6)
--- NOTE | 2019-08-27 19:35 | P.PN ---
Progress Note - Text Progress Note Date: 08/27/19 History of presenting complaint: This is a very pleasant 84-year-old patient of Dr. Shade Pitts. Chronic stable medical conditions include coronary artery disease with an acute [place] in 2017, hyperlipidemia, hypertension, chronic kidney disease stage III, CHF with EF of 3035%, water to severe aortic valve sclerosis. Patient has a stent to the LAD. Patient presented one-day history of Patel [address] liquid stool. No abdominal pain. No nausea vomiting. Patient has been losing some weight and decreased appetite. Patient's significant other is present. No fever or chills. This episode happened yesterday. Today-underwent EGD earlier today. Found to have old blood clots in the fundus of the stomach. 3 linear erosions 04 and was told. Crit and didn't clot with no active bleeding. Patient did have a dark stool this morning. Does feel weak and tired. Review of systems: Was done for constitutional, cardiovascular, GI, pulmonary. relevant finding as above Active Medications Atorvastatin Calcium (Lipitor) 80 mg PO [facility] Last Admin: 08/26/19 21:37 Dose: 80 mg Documented by: Sodium Chloride (Saline 0.9%) 1,000 mls @ 75 mls/hr IV .[id number] [facility] Last Admin: 08/27/19 16:28 Dose: 75 mls/hr Documented by: Metoprolol Succinate (Toprol Xl) 50 mg PO HS [facility] Last Admin: 08/26/19 21:37 Dose: 50 mg Documented by: Naloxone HCl (Narcan) 0.2 mg IV Q2M PRN PRN Reason: Opioid Reversal Nitroglycerin (Nitrostat) 0.4 mg SUBLINGUAL Q5M PRN PRN Reason: Chest Pain Pantoprazole Sodium (Protonix) 40 mg IV DAILY [facility] Last Admin: 08/27/19 08:42 Dose: 40 mg Documented by: Physical examination: VITAL SIGNS: 98, 73, 12, 102/68, 93% room air GENERAL: Laying in bed, tired. EYES: Pupils equal. Conjunctiva pale . HEENT: External appearance of nose and ears normal, oral cavity grossly normal. NECK: JVD not raised; masses not palpable. HEART: First and second heart sounds are normal; no edema. LUNGS: Respiratory rate normal; decreased breath sounds. ABDOMEN: Soft, nontender, liver spleen not palpable, no masses palpable. PSYCH: Alert and oriented x3; mood and affect normal. MUSCULOSKELETAL evidence of OA especially in the hands INVESTIGATIONS, reviewed in the clinical context: White count 5.3 hemoglobin 8.5 bun 62 creatinine 1.32 potassium 4.2 EGD-showing fresh blood clots with no active bleeding at this time of with linear erosions Previous testing White count 10.2 hemoglobin 10.7 repeat 10.7 platelets 153 potassium 5. 8 repeat 4.7 bun 55 creatinine 1.89 Assessment: -Acute GI bleed gastric who is on aspirin and Plavix -Acute blood loss anemia from above -Coronary artery disease with stent to LAD in 2017 -Hyperlipidemia -Essential hypertension -Chronic kidney disease stage III likely from hypertensive nephrosclerosis -Ischemic cardiomyopathy EF 30-35% -Moderate to severe aortic valve sclerosis -Primary osteoarthritis Plan: Discussed with the patient and the . Repeat hemoglobin later today and again in the morning. Encouraged to be out of bed. Per GI patient advanced to full liquid diet for this afternoon.
[2019-08-27] MEDS: ATORVASTATIN 80 MG TAB PO SCH (21:16)
[2019-08-27] MEDS: PANTOPRAZOLE 40 MG TABLET PO SCH (21:16)
[2019-08-27] MEDS: METOPROLOL SUCCINATE (ER) 50 MG TAB.ER.24H PO SCH (21:16)
[2019-08-28 06:53] LABS: HCT 23.6 % (39.0-53.0); HGB 7.6 gm/dL (13.0-17.5); Hypochromasia Slight; MCHC 32.4 g/dL (31.0-37.0); MCV 89.6 fL (80.0-100.0); Mean Platelet Volume 7.4; Platelet Count 100 k/uL (150-450); RBC 2.63 m/uL (4.30-5.90); RDW 13.4 % (11.5-15.5); WBC 4.7 k/uL (3.8-10.6)
[2019-08-28] MEDS: PANTOPRAZOLE 40 MG TABLET PO SCH ×2 (10:17→17:31)
--- NOTE | 2019-08-28 15:18 | P.PN ---
Progress Note - Text Progress Note Date: 08/28/19 History of presenting complaint: This is a very pleasant 84-year-old patient of Dr. Shade Pitts. Chronic stable medical conditions include coronary artery disease with an acute [place] in 2017, hyperlipidemia, hypertension, chronic kidney disease stage III, CHF with EF of 3035%, water to severe aortic valve sclerosis. Patient has a stent to the LAD. Patient presented one-day history of Patel [address] liquid stool. No abdominal pain. No nausea vomiting. Patient has been losing some weight and decreased appetite. Patient's significant other is present. No fever or chills. This episode happened yesterday. EGD on August 27.. Found to have old blood clots in the fundus of the stomach. 3 linear erosions Today-laying in bed. Tired. Not dizzy. Up to the bathroom. No bowel movement. Review of systems: Was done for constitutional, cardiovascular, GI, pulmonary. relevant finding as above Active Medications Atorvastatin Calcium (Lipitor) 80 mg PO [facility] Last Admin: 08/27/19 21:16 Dose: 80 mg Documented by: Metoprolol Succinate (Toprol Xl) 50 mg PO [facility] Last Admin: 08/27/19 21:16 Dose: 50 mg Documented by: Naloxone HCl (Narcan) 0.2 mg IV Q2M PRN PRN Reason: Opioid Reversal Nitroglycerin (Nitrostat) 0.4 mg SUBLINGUAL Q5M PRN PRN Reason: Chest Pain Pantoprazole Sodium (Protonix) 40 mg PO AC-BID [facility] Last Admin: 08/28/19 10:17 Dose: 40 mg Documented by: Physical examination: VITAL SIGNS: 98.1, 68, 16, 109/70, 97% room air GENERAL: Laying in bed, tired. EYES: Pupils equal. Conjunctiva pale . HEENT: External appearance of nose and ears normal, oral cavity grossly normal. NECK: JVD not raised; masses not palpable. HEART: First and second heart sounds are normal; no edema. LUNGS: Respiratory rate normal; decreased breath sounds. ABDOMEN: Soft, nontender, liver spleen not palpable, no masses palpable. PSYCH: Alert and oriented x3; mood and affect normal. MUSCULOSKELETAL evidence of OA especially in the hands INVESTIGATIONS, reviewed in the clinical context: Hemoglobin 7.6 Previous testing EGD-showing fresh blood clots with no active bleeding at this time of with linear erosions Previous testing White count 10.2 hemoglobin 10.7 repeat 10.7 platelets 153 potassium 5. 8 repeat 4.7 bun 55 creatinine 1.89 Assessment: -Acute GI bleed gastric who is on aspirin and Plavix -Acute blood loss anemia from above -Coronary artery disease with stent to LAD in 2017 -Hyperlipidemia -Essential hypertension -Chronic kidney disease stage III likely from hypertensive nephrosclerosis -Ischemic cardiomyopathy EF 30-35% -Moderate to severe aortic valve sclerosis -Primary osteoarthritis Plan: Discussed with the patient . We'll another 24 hours. 2 hemoglobin doesn't drop any further. Patient has been off antiplatelet agents. Encouraged to be out of bed. Repeat CBC in the morning. If hemodynamically stable will discharge home tomorrow.
[2019-08-28] MEDS: METOPROLOL SUCCINATE (ER) 50 MG TAB.ER.24H PO SCH (22:00)
[2019-08-28] MEDS: ATORVASTATIN 80 MG TAB PO SCH (22:00)
--- NOTE | 2019-08-28 23:15 | P.PN ---
Subjective Progress Note Date: 08/28/19 Principal diagnosis: Upper GI bleed, anemia acute blood loss Patient is seen lying in bed today with no reports of abdominal pain or further GI bleeding. He is tolerating his diet. Objective - Vital Signs Vital signs: Vital Signs Temp 97.9 F 08/28/19 20:00 Pulse 68 08/28/19 20:00 Resp 14 08/28/19 20:00 BP 157/75 08/28/19 20:00 Pulse Ox 98 08/28/19 20:00 Intake & Output 08/28/19 08/28/19 08/29/19 06:59 18:59 05:59 Intake Total 296 Balance 296 Intake: Oral 296 Other: Voiding Method Toilet # Voids 4 3 - Exam On physical examination, patient appears comfortable in no apparent distress. HEAD: Normocephalic, atraumatic. EYES: No scleral icterus. No conjunctival injection. MOUTH: No lesions, tongue midline. NECK: Trachea midline, no gross abnormalities. ABDOMEN: Soft, obese. Bowel sounds are positive. No organomegaly. No guarding or rigidity. EXTREMITIES: No pedal edema. SKIN: No rashes, no jaundice. NEUROLOGIC: Alert and oriented. - Labs CBC & Chem 7: 08/28/19 06:38 08/27/19 09:13 Labs: Abnormal Lab Results - Last 24 Hours (Table) 08/28/19 Range/Units 06:38 RBC 2.63 L (4.30-5.90) m/uL Hgb 7.6 L (13.0-17.5) gm/dL Hct 23.6 L (39.0-53.0) % Plt Count 100 L (150-450) k/uL Assessment and Plan (1) Upper GI bleed Narrative/Plan: 84-year-old male with multiple medical comorbidities who presented to the hospital with complaints of GI bleeding, melena. EGD was significant for old blood with no active bleeding and linear erosions in the stomach. No further melena reported today. Hemoglobin has stayed relatively stable. No abdominal p ain reported. Current Visit: Yes Status: Acute Code(s): K92.2 - GASTROINTESTINAL HEMORRHAGE, UNSPECIFIED SNOMED Code(s): 57344168 (2) Anemia associated with acute blood loss Current Visit: Yes Status: Acute Code(s): D62 - ACUTE POSTHEMORRHAGIC ANEMIA SNOMED Code(s): 161447985 (3) Melena Current Visit: Yes Status: Acute Code(s): K92.1 - MELENA SNOMED Code(s): 8027962 Plan: Supportive care Diet advance today to low fiber/soft Continue to monitor hemoglobin Continue Protonix 40 mg twice daily Avoid NSAID use If patient remains hemodynamically stable with normal hemoglobin and no further symptoms okay for discharge from GI standpoint Thank you for allowing us to participate in the care of this patient, the GI service will stand by, please call us back with any questions or concerns
[2019-08-29 07:23] LABS: Basophils % (A) 0 %; Eosinophils # (A) 0.3 k/uL (0-0.7); Eosinophils % (A) 7 %; HCT 25.7 % (39.0-53.0); HGB 8.5 gm/dL (13.0-17.5); Hypochromasia Slight; Lymphocytes # (A) 1.2 k/uL (1.0-4.8); Lymphocytes % (A) 24 %; MCH 29.4 pg (25.0-35.0); MCHC 33.1 g/dL (31.0-37.0); MCV 88.7 fL (80.0-100.0); Mean Platelet Volume 7.8; Monocytes # (A) 0.4 k/uL (0-1.0); Monocytes % (A) 7 %; Neutrophils # (A) 3.1 k/uL (1.3-7.7); Neutrophils % (A) 60 %; Platelet Count 108 k/uL (150-450); RBC 2.89 m/uL (4.30-5.90); RDW 13.3 % (11.5-15.5); WBC 5.1 k/uL (3.8-10.6)
[2019-08-29 07:37] LABS: Calcium 8.7 mg/dL (8.4-10.2); Potassium 4.5 mmol/L (3.5-5.1)
[2019-08-29] MEDS: PANTOPRAZOLE 40 MG TABLET PO SCH ×2 (08:29→17:51)
[2019-08-29 15:57] VITALS: BP 117/75; PULSE 69; RESP 14; TEMP 97.6
--- NOTE | 2019-08-29 22:57 | P.DS ---
Providers Date of admission: 08/27/19 10:23 Expected date of discharge: 08/29/19 Attending physician: Akhil Decker Primary care physician: Shade Pitts [facility] Course: Hospital course: This is a very pleasant 84-year-old patient of Dr. Shade iPtts. Chronic stable medical conditions include coronary artery disease with an acute [place] in 2017, hyperlipidemia, hypertension, chronic kidney disease stage III, CHF with EF of 3035%, water to severe aortic valve sclerosis. Patient has a stent to the LAD. Patient presented one-day history of Patel 2 months of DrDeuce liquid stool. No abdominal pain. No nausea vomiting. Patient has been losing some weight and decreased appetite. Patient's significant other is present. No fever or chills. This episode happened yesterday. EGD on August 27.. Found to have old blood clots in the fundus of the stomach. 3 linear erosions Today-no dizzy anymore. Up to the bathroom. Tolerating a diet. Has not had a bowel movement. at the bedside. Patient concerns about going off. Did reassure him that hemoglobin is, nicely. Yes it is possible it could bleed again but nothing further to the hospital. This was discussed at length. Also talked about antiplatelet agents and see his personal banker. Aspirin will be started September 01 and Plavix will be held for right now. Discussion and discharge planning more than 35 minutes Consultation: Dr. Unique Ku and associates from GI Physical examination: VITAL SIGNS: 97.6, 69, 14, 11 7/75, 99% room air GENERAL: Laying in bed, comfortable. EYES: Pupils equal. Conjunctiva pale . HEENT: External appearance of nose and ears normal, oral cavity grossly normal. NECK: JVD not raised; masses not palpable. HEART: First and second heart sounds are normal; no edema. LUNGS: Respiratory rate normal; decreased breath sounds. ABDOMEN: Soft, nontender, liver spleen not palpable, no masses palpable. PSYCH: Alert and oriented x3; mood and affect normal. MUSCULOSKELETAL evidence of OA especially in the hands INVESTIGATIONS, reviewed in the clinical context: Hemoglobin 8.5 Previous testing EGD-showing fresh blood clots with no active bleeding at this time of with linear erosions Previous testing White count 10.2 hemoglobin 10.7 repeat 10.7 platelets 153 potassium 5. 8 repeat 4.7 bun 55 creatinine 1.89 Assessment: -Acute GI bleed from gastric erosions who is on aspirin and Plavix -Acute blood loss anemia from above -Coronary artery disease with stent to LAD in 2017 -Hyperlipidemia -Essential hypertension -Chronic kidney disease stage III likely from hypertensive nephrosclerosis -Ischemic cardiomyopathy EF 30-35% -Moderate to severe aortic valve sclerosis -Primary osteoarthritis Disposition: Home Patient Condition at Discharge: Stable Plan - Discharge Summary Discharge Rx Participant: Yes New Discharge Prescriptions: New Pantoprazole [Protonix] 40 mg PO AC-BID #60 tablet.dr Continue Metoprolol Succinate [Toprol XL] 50 mg PO HS Losartan Potassium 100 mg PO DAILY Atorvastatin [Lipitor] 80 mg PO HS #60 tab Aspirin [Adult Low Dose Aspirin EC] 81 mg PO DAILY Nitroglycerin Sl Tabs [Nitrostat] 0.4 mg SUBLINGUAL Q5M PRN #21 tab PRN Reason: Chest Pain Ferrous Sulfate [Iron (65 MG Elemental)] 325 mg PO DAILY Simethicone 80 mg PO DAILY PRN PRN Reason: gas Discontinued amLODIPine BESYLATE [Norvasc] 5 mg PO HS Clopidogrel [Plavix] 75 mg PO DAILY #90 tab diphenhydrAMINE HCL [Benadryl] 25 mg PO HS PRN PRN Reason: sleep Cholecalciferol [Vitamin D3 (25 Mcg = 1000 Iu)] 1,000 unit PO DAILY Discharge Medication List Losartan Potassium 100 mg PO DAILY 06/07/15 [History] Metoprolol Succinate [Toprol XL] 50 mg PO HS 06/07/15 [History] Atorvastatin [Lipitor] 80 mg PO HS #60 tab 06/22/15 [Rx] Aspirin [Adult Low Dose Aspirin EC] 81 mg PO DAILY 09/07/17 [History] Nitroglycerin Sl Tabs [Nitrostat] 0.4 mg SUBLINGUAL Q5M PRN #21 tab 09/10/17 [Rx] Ferrous Sulfate [Iron (65 MG Elemental)] 325 mg PO DAILY 08/25/19 [History] Simethicone 80 mg PO DAILY PRN 08/25/19 [History] Pantoprazole [Protonix] 40 mg PO AC-BID #60 tablet. 08/29/19 [Rx] Follow up Appointment(s)/Referral(s): Marcelo Nguyễn MD [STAFF PHYSICIAN] - 3 Days (Office closed at time of discharge please call FridayAugust 30 to set up a follow up appointment) Shade Pitts MD [Primary Care Provider] - 1 Week (Office closed at time of discharge please call FridayAugust 30 to set up a follow up appointment) Esmer Ku MD [STAFF PHYSICIAN] - 1 Week (Office closed at time of discharge please call FridayAugust 30 to set up a follow up appointment) Patient Instructions/Handouts: Gastrointestinal Bleeding (DC) Activity/Diet/Wound Care/Special Instructions: start aspirin on 09/01 hold plavix. cbc - 1 week
== END 2019-08-29 18:25 | disposition home or self-care (01) | DRG 378 ==
LOC: EC 21:25 → 4SSUR 22:53 → EC 08-26 00:17 → OBSVTOIN 08-27 10:23
PROVIDERS: ADMIT Hospitalist; ATTEND Hospitalist
PROC: 0DJ08ZZ Inspection of Upper Intestinal Tract, Via Natural or Artificial Opening Endoscopic (ICD-10-PCS; principal; 2019-08-26 08:35)
DX: K25.4 Chronic or unspecified gastric ulcer with hemorrhage (principal); D62 Acute posthemorrhagic anemia; I13.0 Hypertensive heart and chronic kidney disease with heart failure and stage 1 through stage 4 chronic kidney disease, or unspecified chronic kidney disease; N17.9 Acute kidney failure, unspecified; E78.5 Hyperlipidemia, unspecified; I25.10 Atherosclerotic heart disease of native coronary artery without angina pectoris; I25.2 Old myocardial infarction; I25.5 Ischemic cardiomyopathy; I35.8 Other nonrheumatic aortic valve disorders; I50.9 Heart failure, unspecified; M19.91 Primary osteoarthritis, unspecified site; N18.3 Chronic kidney disease, stage 3 (moderate); Z79.02 Long term (current) use of antithrombotics/antiplatelets; Z79.82 Long term (current) use of aspirin; Z79.899 Other long term (current) drug therapy; Z86.73 Personal history of transient ischemic attack (TIA), and cerebral infarction without residual deficits; Z87.891 Personal history of nicotine dependence; Z91.19 Patient's noncompliance with other medical treatment and regimen; Z95.5 Presence of coronary angioplasty implant and graft; Z88.0 Allergy status to penicillin
CPT/HCPCS: 36415; 43235; 80048; 80053; 82272; 83735; 84484; 85025; 85027; 85610; 85730; 86850; 86900; 86901; 93005; 96361; 96374; 99285